=== PATIENT | male | born 1945 | race Caucasian/White ===

== ENCOUNTER 2018-12-19 21:07 | Inpatient (IN) | payer MEDICARE, MEDICAID ==
[2018-12-20] MEDS ORDERED: HYDROcodone/Acetaminophen 5/325 mg Tablet PO PRN ×2 (00:56)
[2018-12-20] MEDS ORDERED: Ondansetron PF 4 MG/2 ML Vial IVP PRN ×2 (00:56→03:26)
[2018-12-20] MEDS ORDERED: Acetaminophen 325 MG TAB PO PRN (00:56)
[2018-12-20] MEDS ORDERED: Sodium Chloride 0.9% 1,000 ML IV SCH (00:56)
[2018-12-20 02:05] VITALS: BMI 22.2
[2018-12-20] MEDS ORDERED: Senokot S 8.6-50 MG TAB PO PRN (03:26)
[2018-12-20] MEDS ORDERED: Acetaminophen 500 MG TAB PO PRN (03:26)
[2018-12-20] MEDS ORDERED: Ondansetron ODT 4 MG TAB PO PRN (03:26)
[2018-12-20] MEDS ORDERED: hydrALAZINE 20 MG/ML VIAL SLOW IVP PRN (03:26)
[2018-12-20] MEDS ORDERED: Bisacodyl 5 MG TAB PO PRN (03:26)
[2018-12-20] MEDS: cefTRIAXone\\ROCEPHIN 2 GM in Sodium Chloride 0.9% 100 ML IVPB SCH (04:25)
[2018-12-20 04:31] LABS: Band 6 % (5-11); Eosinophils 2 % (0-10); Hemoglobin 12.8 g/dL (14.0-18.0); Lymphocytes 8 % (21-51); MDiff Complete? YES; Mean Corpuscular HGB CONC 33.7 g/dL (32.0-36.0); Mean Corpuscular Hemoglobin 30.4 pg (27.0-31.0); Mean Corpuscular Volume 90.2 fL (78.0-98.0); Monocytes 6 % (0-10); Neutrophil 78 % (42-75); Platelet Count 211 thou/uL (130-400); Platelet Morphology Comment Appears Adequate; RBC Distribution Width 12.2 % (11.5-14.5); RBC Morphology Normal; White Blood Cell (WBC) Count 8.1 thou/uL (4.8-10.8)
[2018-12-20 04:36] LABS: ALT (SGPT) 11 U/L (8-55); AST (SGOT) 39 U/L (5-34); Albumin 3.6 g/dL (3.4-4.8); Alkaline Phosphatase 85 U/L (40-150); Anion Gap 11 mmol/L (10-20); BUN (Urea Nitrogen) 16 mg/dL (8.4-25.7); Bilirubin, Total 0.5 mg/dL (0.2-1.2); Calc. Creatinine Clearance 61 mL/min (70-130); Calcium 9.2 mg/dL (7.8-10.44); Carbon Dioxide 27 mmol/L (23-31); Chloride 105 mmol/L (98-107); Estimated GFR-MDRD 59; Globulin 2.5 g/dL (2.4-3.5); Glucose 102 mg/dL (83-110); Potassium 4.2 mmol/L (3.5-5.1); Protein, Total 6.1 g/dL (5.8-8.1); Sodium 139 mmol/L (136-145)
[2018-12-20] MEDS: Sodium Chloride 0.9% 1,000 ML IV SCH ×3 (04:37→23:04)
--- NOTE | 2018-12-20 05:20 | HP ---
PRIMARY CARE PROVIDER: Dr. Lisa Casper. CHIEF COMPLAINT: Question of abdominal pain. HISTORY OF PRESENT ILLNESS: This is a 73-year-old male, who is a current resident of [facility] due to advanced Parkinson disease, deconditioning, dementia with a known history of benign prostatic hyperplasia with overactive bladder. The patient apparently was noted by intermediate staff with some abdominal pain and referred to the [facility]. The patient underwent CT imaging of the abdomen and pelvis in [place] showing a left renal mass with evidence of metastatic process including a pathological L4 compression fracture. The patient without a known prior history of renal mass upon review of the electronic medical record. The patient was also diagnosed with potential urinary tract infection, receiving Levaquin and Rocephin intravenously. The patient also received morphine sulfate 2 mg IV push x1 dose. The patient was transferred to [facility] in [place], [place] for further evaluation of left renal mass and potential metastatic process. The patient is unable to provide any coherent history due to advanced dementia, and history is obtained after review of the electronic medical record from [facility] and [facility]. No family members are currently present or available. PAST MEDICAL HISTORY: 1. Hypertension. 2. Parkinson disease. 3. Benign prostatic hyperplasia with overactive bladder. 4. History of intermittent gross hematuria. 5. Chronic anemia. 6. Dementia, likely Alzheimer's type. 7. Deconditioning. 8. Recurrent urinary tract infections. 9. Chronic constipation. PAST SURGICAL HISTORY: Status post cataract removal. CURRENT MEDICATIONS: 1. Ferrous sulfate 325 mg p.o. daily. 2. Finasteride 5 mg p.o. daily. 3. Lasix 10 mg p.o. daily. 4. Mirtazapine 7.5 mg p.o. at bedtime. 5. Myrbetriq 50 mg p.o. daily. 6. Prolensa 0.07% ophthalmic drops. 7. Sinemet 25/100 mg one tablet p.o. t.i.d. 8. Ofloxacin ophthalmic drops 0.3%. 9. Prednisolone acetate 1% ophthalmic drops. ALLERGIES: TO SULFA. FAMILY HISTORY: No inheritable diseases per patient report. SOCIAL HISTORY: The patient resides in [facility]. No current alcohol, tobacco, or illicit drug use. CODE STATUS: Do not attempt resuscitation. Surrogate medical decision maker is Christiana Quiñones. REVIEW OF SYSTEMS: Unobtainable due to patient's advanced dementia. PHYSICAL EXAMINATION: VITAL SIGNS: On admission; blood pressure 126/70, pulse 85, respiratory rate 16, temperature 97.7 degrees Fahrenheit, and O2 saturation 97% on room air. GENERAL APPEARANCE: This is a 73-year-old male, alert and responds to his name with 1 to 2-word phrases. No acute distress. HEENT: Pupils are equal, round, and reactive to light and accommodation. Extraocular muscles are intact. No scleral icterus. No conjunctival injection. Nares patent. OP is clear. Oral mucosa, dry appearing. NECK: Supple. No cervical adenopathy. No thyromegaly. No carotid bruits. No JVD appreciated. Cervical spine with full active and passive range of motion. No meningeal signs noted. CHEST: Lungs are clear to auscultation bilaterally. CARDIOVASCULAR: S1 and S2 without noted murmur, rub, or gallop. ABDOMEN: Rounded, soft, nontender, and nondistended. Bowel sounds are positive in all 4 quadrants. There is no hepatosplenomegaly. No abdominal bruits. No rebound or guarding appreciated. EXTREMITIES: Warm and dry with fair turgor. Mild venous stasis changes to bilateral lower extremities noted. Pulses palpable distally at the dorsalis pedis, posterior tibial, and popliteal arteries bilaterally. Capillary refill less than 2 seconds. NEUROLOGIC: Cranial nerves 2 through 12 are grossly intact. The patient not observed ambulatory during the exam. Alert and oriented x1 to person. PERTINENT LABORATORY AND X-RAY FINDINGS: Sodium 141, potassium 4.0, chloride 105, CO2 of 28, BUN 19, creatinine 1.23, estimated GFR 57, and glucose 98. Lactic acid level 0.9 and calcium 9.4. LFTs within normal limits. CBC showed a white blood cell count of 7.4, hemoglobin 12.4, hematocrit 38, and platelet count 200 with 81% neutrophilia. Urinalysis dated 12/19/2018 showed positive ketones, large blood with greater than 50 to [id number]-count rbc's per high-powered field and 11 to 20 wbc's per high-powered field. 2+ bacteria noted. CT of the abdomen and pelvis dated 12/19/2018 showed large left mixed density renal mass with likely metastatic process with associated pathologic fracture at L4. Marked prostate enlargement with mass effect upon the bladder base. CT of the brain without contrast by my interpretation dated 12/19/2018 showed advanced atrophy with sulcal and ventricular prominence. No acute process identified. EKG dated 12/19/2018 by my interpretation shows a sinus mechanism with heart rates in the 80s. Normal R-wave progression noted in the precordial leads. Normal axis. No acute ST-T wave changes noted. ASSESSMENT AND PLAN: 1. Urinary tract infection. Suspected given initial urinalysis. Await final urine culture results. Continue Rocephin 2 g IV q.24 hours. Continue IV fluids with normal saline at 75 mL/hour. 2. Acute metabolic encephalopathy. Suspect secondary to #1. We will continue treatment as outlined in #1. Suspect also component of underlying dementia. 3. Left renal mass with apparent metastatic process. We will consult Urology Service in the a.m. for further recommendations. 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 4. L4 compression fracture. Suspected pathological fracture. We will continue supportive management and pain control as clinically indicated. Consult Neurosurgical Service for any further recommendations and consideration for LSO bracing. 5. Parkinson disease. Continue Sinemet CR t.i.d. PT evaluation for functional assessment. General fall risk precautions. 6. Dementia, likely Alzheimer's type. Continue supportive management. 7. Prophylaxis. SCDs while in bed. Pepcid 20 mg p.o. b.i.d. PT evaluation for functional assessment. 8. Code status is do not attempt resuscitation, confirmed with out of hospital directive and DNR status. Surrogate medical decision maker is Christiana Quiñones. Job ID: [id number]
--- NOTE | 2018-12-20 07:27 | CT ---
HEAD CT NONCONTRAST: INDICATION: Altered mental status. FINDINGS: There is mild parenchymal volume. Ventricular system is age appropriate in size. There is no acute intracranial hemorrhage, mass effect, or midline shift. No acute fluid level of the paranasal sinuse s. IMPRESSION: No acute intracranial abnormality. POS: C
[2018-12-20] MEDS ORDERED: VIT E PO SCH (09:00)
[2018-12-20] MEDS ORDERED: [UNRECOGNIZED DRUG - OTHER] PO SCH (09:00)
[2018-12-20] MEDS ORDERED: VIT A PO SCH (09:00)
[2018-12-20] MEDS ORDERED: ZINC PO SCH (09:00)
[2018-12-20] MEDS ORDERED: VIT C PO SCH (09:00)
[2018-12-20] MEDS ORDERED: HumaLOG 300 UNITS/3 ML VIAL SC PRN ×2 (09:26)
[2018-12-20] MEDS: Multivitamin W/ Minerals 1 TAB PO SCH (09:34)
[2018-12-20] MEDS: Ferrous Sulfate 325 MG TAB PO SCH (09:34)
[2018-12-20] MEDS: Famotidine 20 MG TAB PO SCH ×2 (09:34→20:18)
[2018-12-20] MEDS: Polyethylene Glycol 3350 17 GM Packet PO SCH ×2 (09:34→20:19)
[2018-12-20] MEDS: Finasteride 5 MG TAB PO SCH (09:34)
[2018-12-20] MEDS: Carbidopa/Levodopa 25-100 mg Tablet PO SCH ×3 (09:45→20:18)
--- NOTE | 2018-12-20 13:21 | PDOC.EVN ---
Event Note - Event Note Event Note: Chart reviewed. Pt seen. Says he feels about the same. VSS, S1, S2, RRR. Lungs CTA. Continue IV ceftriaxone for UTI. Pt awaiting consultes from urology, neurosurgery and oncology. Once prognosis is clearer, decision to be made re: treatment options including palliative/ hospice care.
--- NOTE | 2018-12-20 15:57 | PRG ---
DATE OF SERVICE: 12/20/2018 This is a 30-minute initial hospital visit note, in which 30 minutes were spent reviewing the imaging, record evaluation, examination of the patient, and formulation of plan. Greater than 50% time was spent in counseling on Elvin Nicole. SUBJECTIVE: Mr. Nicole is a very pleasant 73-year-old gentleman, who presented with low back pain. He was found to have an L4 anterior middle column fracture. There is no worrisome retropulsion. On abdominal pelvic CT he was found to have a renal mass concerning for renal cell carcinoma. He is on the Oncology floor. OBJECTIVE: On exam, he is alert and appropriate. He is neurologically intact. I have updated him in regard to the findings of the CT, specifically related to his spine, and also that he has a kidney mass that will need further evaluation. From a neurosurgical standpoint, treatment of his fracture will include arrangement for a lumbosacral orthosis to be worn when out of bed for duration of approximately 6 to 12 weeks. I have updated the patient in this regard, and we will order the brace. I will also arrange follow up in my clinic in approximately 6 weeks with upright AP and lateral lumbar spine x-rays. The patient is appreciative of the evaluation, consultation, and demonstrates understanding of the plan. DIAGNOSIS: L4 fracture possibly pathologic with renal mass. Job ID: [id number]
[2018-12-20] MEDS: Mirtazapine 15 MG TAB PO SCH (20:19)
--- NOTE | 2018-12-20 20:42 | CON ---
DATE OF CONSULTATION: 12/20/2018 REASON FOR CONSULTATION: Possible metastatic kidney malignancy. HISTORY OF PRESENT ILLNESS: The patient is a 73-year-old man who is currently resident of the [facility] due to advanced Parkinson disease and dementia. He has a poor functional status and is essentially confined to bed, and possibly wheelchair. He complained of abdominal discomfort and was further evaluated in the [facility] with imaging including a CT scan of the abdomen and pelvis which showed a large left kidney mass with a hemorrhagic component, associated with a possible pathologic fracture of L4. There is worrisome questionable small lytic lesion in the visualizable skeleton. There was also history of urinary tract infection and the patient was placed on antibiotics. He was transferred to [facility] for further evaluation and I am asked to see the patient to provide further management and recommendation. ALLERGIES: THERE IS A HISTORY OF SULFA ALLERGY, DETAILS UNAVAILABLE. MEDICATIONS: 1. Ferrous sulfate. 2. Finasteride. 3. Lasix. 4. Mirtazapine. 5. Myrbetriq. 6. Prolensa eye drops. 7. Sinemet. 8. Ofloxacin eye drops. 9. Prednisolone eye drops. PAST MEDICAL HISTORY: Hypertension, Parkinson disease, BPH, dementia, deconditioning, recurrent urinary tract infection, chronic constipation. FAMILY HISTORY: No relevant history according to review of past records. SOCIAL HISTORY: He resides in [facility]. He does not use alcohol or tobacco. He has been a do not resuscitate patient in [place]. His medical power of trust and estates attorney is his sister, Perez Morelos. REVIEW OF SYSTEMS: Unobtainable as the patient cannot participate in a meaningful conversation secondary to his underlying dementia. PHYSICAL EXAMINATION: VITAL SIGNS: Temperature 98.3, pulse 69 and regular, respirations 16, blood pressure 139/67. O2 saturation 98% on room air. GENERAL: The patient is a well-developed and well-nourished man who appears in no acute distress, lying flat. He is disoriented to time and place. He cannot participate meaningfully in a conversation and cannot answer simple questions. HEENT: Extraocular movements are intact. Pupils are equal, round, and reactive to light. NECK: Supple. LUNGS: Clear. CARDIOVASCULAR: Regular rate and rhythm without murmur, rub, gallop, or click. ABDOMEN: No tenderness, organomegaly, masses, bruits, or ascites. EXTREMITIES: No clubbing, cyanosis, or edema. SKIN: Normal. LYMPHATICS: No adenopathy. MUSCULOSKELETAL: No active arthritis. NEUROLOGIC: No focal findings and the cranial nerves 2 through 12 are grossly intact. LABORATORY DATA: White blood cell count 8.1, hemoglobin 12.8, MCV 90.2, and platelet count 211,000. White blood cell differential is normal. Chemistry showed normal electrolytes and a creatinine of 1.2. A point of care blood sugar is 91. LFTs are normal except for a borderline AST of 39. PSA 3.79. Calcium is 9.2. IMAGING DATA: See history of present illness. IMPRESSION: 1. Left kidney mass with hemorrhagic component, associated with possible malignant L4 compression fracture. 2. Advance dementia and poor functional status. RECOMMENDATIONS: Given the presence of advanced dementia and poor performance status, I would recommend an extremely conservative approach in this setting. At this point, I would concentrate on comfort measures and not pursue a definitive diagnosis. His prognosis secondary to his multiple comorbidities is poor. Of course, we have not discussed his case with his medical power trust and estates attorney and attempts to contact Perez Morelos continue. Thanks very much for allowing me to provide more recommendations. Job ID: [id number]
--- NOTE | 2018-12-20 21:18 | CON ---
DATE OF CONSULTATION: 12/20/2018 HISTORY OF PRESENT ILLNESS: The patient has actually been followed by Dr. Caicedo previously, and I am seeing him over the weekend as coverage for him, although the patient could not relay this information to me. He was able to answer questions , but the accuracy of his answers is in question as he is not oriented to time or place. He has pain and I am not sure if this pain is causing him to wince, grimace, and cry out with very hesitance during our conversation. He cannot tell me what was hurting him or really whether anything was hurting him as this same reaction was elicited when I asked him either difficult question or asked him to try to move position (and occurred even without him actually moving). Then I could ask another question and get him to stop simply with distraction. He denies seeing blood in the urine recently, but he does admit to having a push to get the urine out. Dr. Caicedo saw him last in September and followed him last year for gross hematuria. At that time, he did cystoscopy in the office that was difficult given persistent hematuria, but did not show any obvious masses and did confirm that the prostate was bleeding. He started finasteride at that time. PAST MEDICAL HISTORY: Significant for Parkinson's. He lives in a jail in [place]. Constipation, dementia, anemia, and urinary tract infection. PAST SURGICAL HISTORY: Includes cataracts, left arm surgery, and some abdominal procedure that I could not understand, but there is clearly an incision in this area. MEDICATIONS: Include: 1. Iron. 2. Finasteride. 3. Lasix. 4. Mirtazapine. 5. Myrbetriq 50 mg. 6. Prolensa. 7. Sinemet. 8. Antibiotic and steroid eyedrops. SOCIAL HISTORY: I do not think he has smoked for 20 or 30 years, but I could not ascertain how much he was smoking at that time. He does not drink alcohol. No drugs. He used to drink alcohol when he was not in the facility, but did not abuse it. FAMILY HISTORY: His mother and father were passed, but I could not understand how older and from what. REVIEW OF SYSTEMS: Reveals he has had nausea, but no vomiting. His bowels have been okay. He denies any chest pain or shortness of breath or cough. I do not think he has had a history of stones. He has been screened for prostate cancer previously with a PSA of 9.16 in September 2017; however, the PSA upon admission now 3.79, which should be doubled fairly at 7.58. PHYSICAL EXAMINATION: GENERAL: He is lying in the bed comfortably; however, when I interacted him as previously mentioned, he was periodically grimaces, opens his mouth wide and begins to cry. He never actually would open his eyes fully for me to assess them He kept them closed even when he was not grimacing. NECK: He had no JVD. HEART: His heart was difficult to listen to as he was both talking and murmuring during listening. LUNGS: His lungs had an intermittent increased coarse breath sounds, but otherwise nothing of concern. ABDOMEN: Soft, nondistended, and nontender with the incision in the left mid abdomen horizontally lateral to the umbilicus. He also had an incision in his left arm near the wrist. HEENT: He was missing his lower teeth. GENITOURINARY: His testes were descended bilaterally. His phallus was circumcised without lesions. RECTAL: I attempted digital rectal exam, but I was only able to feel the apex and that was soft and non-concerning. EXTREMITIES: He had bilateral lower extremity edema that was slightly pitting. LABORATORY DATA: CBC was unremarkable. BUN and creatinine are 16 and 1.20. This does appear to be his baseline. Urinalysis upon admission showed 11 to 20 wbc's , too numerous to count rbc's, 2+ bacteria, and no squamous cells. CT scan on 12/19/2018 with contrast reviewed personally. It revealed a right simple cyst as well as a left 5.8 x 4.5 x 4 cm renal mass that is mid to upper and all endophytic. There was no noncontrast imaging to measure. HFUs were in the 40s. He had an enlarged prostate with an intravesical component (which has been confirmed by cysto by Dr. Caicedo) and normal small bladder. ASSESSMENT: We have a 73-year-old male admitted with abdominal pain, likely related to urinary tract infection from benign prostatic hyperplasia, bladder outlet obstruction, who also happens to have a large concerning left renal mass and a concern for metastatic spinal lesion. Clearly, the renal mass is most concerning issue at this time, and having a discussion of whether to biopsy and/or treat this would be appropriate with both him and his surrogate decision makers. If a biopsy is considered, I did go ahead and order a PT and PTT and I would hold any aspirin or blood thinners at this time. Given the UTI that he is admitted with, it is a definitive indication for surgical procedure for his bladder outlet obstruction based on the fact he has already been on finasteride. But at this point, I would just go ahead and add tamsulosin which should aid in improving his emptying and efficiency of such at this time. Job ID: [id number] [facility]
[2018-12-21] MEDS: cefTRIAXone\\ROCEPHIN 2 GM in Sodium Chloride 0.9% 100 ML IVPB SCH (04:49)
[2018-12-21 05:04] LABS: INR-International Normal Ratio 1.2; PTT 38.8 SEC (22.9-36.1); Prothrombin Time 14.9 SEC (12.0-14.7)
[2018-12-21] MEDS: Finasteride 5 MG TAB PO SCH (08:43)
[2018-12-21] MEDS: Famotidine 20 MG TAB PO SCH ×2 (08:43→20:30)
[2018-12-21] MEDS: Multivitamin W/ Minerals 1 TAB PO SCH (08:44)
[2018-12-21] MEDS: Carbidopa/Levodopa 25-100 mg Tablet PO SCH ×3 (08:44→20:30)
[2018-12-21] MEDS: Polyethylene Glycol 3350 17 GM Packet PO SCH ×2 (08:44→20:30)
[2018-12-21] MEDS: Ferrous Sulfate 325 MG TAB PO SCH (08:44)
[2018-12-21] MEDS: Sodium Chloride 0.9% 1,000 ML IV SCH (12:35)
--- NOTE | 2018-12-21 19:18 | PDOC.PN ---
- Subjective Encounter Start Date: 12/21/18 Encounter Start Time: 08:30 Patient seen and examined for Encephalopathy/UTI. No new complaints. No overnight events - Objective Resuscitation Status - Order Detail: 12/20/18 03:18 Resuscitation Status Routine Resuscitation Status: DNAR: NO Resuscitation Discussed with: Confirmed with OOH directive MAR Reviewed: Yes Vital Signs & Weight: Vital Signs (12 hours) Temp Pulse Resp BP Pulse Ox 12/21/18 08:00 97.9 F 66 16 133/77 99 Weight Weight 178 lb I&O: 12/20/18 12/21/18 12/22/18 06:59 06:59 06:59 Intake Total 0 1600 1200 Output Total 1975 975 Balance 0 -375 225 Result Diagrams: 12/20/18 04:08 12/20/18 04:08 Additional Labs: Accuchecks 12/21/18 12/21/18 12/21/18 15:24 11:15 05:19 POC Glucose 106 135 H 88 12/20/18 20:02 POC Glucose 120 H Phys Exam - Physical Examination Constitutional: NAD Respiratory: no wheezing, no rhonchi Cardiovascular: RRR, no rub Gastrointestinal: soft, non-tender, positive bowel sounds Musculoskeletal: no edema Dx/Plan - Plan DVT proph w/SCDs 1. Toxic Metabolic Encephalopathy due to UTI 2. New Renal mass with L4 fracture ?mets 3. Parkinson disease 4. CKD 2 5. Dementia/ Chronic Anemia PLAN: Cont IV Ceftriaxone Check Postvoid residuals Cont Flomax Cont other meds as below Review of Systems - Review of Systems Respiratory: negative: Cough, Dry, Shortness of Breath, Hemoptysis, SOB with Excertion, Pleuritic Pain, Sputum, Wheezing Cardiovascular: negative: chest pain, palpitations, orthopnea, paroxysmal nocturnal dyspnea, edema, light headedness, other - Medications/Allergies Allergies/Adverse Reactions: Allergies Allergy/AdvReac Type Severity Reaction Status Date / Time Sulfa (Sulfonamide Allergy Verified 12/20/18 01:48 Antibiotics) Medications: Current Medications Acetaminophen (Tylenol) 1,000 mg PO Q6H PRN PRN Reason: Mild Pain (1-3) Bisacodyl (Dulcolax) 10 mg PO DAILYPRN PRN PRN Reason: Constipation Carbidopa/Levodopa (Sinemet 25-100) 1 tab PO TID MARQUES Last Admin: 12/21/18 15:25 Dose: 1 tab Famotidine (Pepcid) 20 mg PO BID [facility] Last Admin: 12/21/18 08:43 Dose: 20 mg Ferrous Sulfate (Feosol) 325 mg PO DAILY [facility] Last Admin: 12/21/18 08:44 Dose: 325 mg Finasteride (Proscar) 5 mg PO DAILY [facility] Last Admin: 12/21/18 08:43 Dose: 5 mg Hydralazine HCl (Apresoline) 10 mg SLOW IVP Q4H PRN PRN Reason: SBP > 180 and HR < 70 Ceftriaxone Sodium 2 gm/ (Sodium Chloride) 100 mls @ 200 mls/hr IVPB Q24HR [facility] Last Admin: 12/21/18 04:49 Dose: 100 mls Sodium Chloride (Normal Saline 0.9%) 1,000 mls @ 75 mls/hr IV .[id number] [facility] Last Admin: 12/21/18 12:35 Dose: 1,000 mls Insulin Human Lispro (Humalog) 0 units SC .MILD SLIDING SCALE PRN; Protocol PRN Reason: MILD SLIDING SCALE Insulin Human Lispro (Humalog) 0 units SC .BEDTIME SLIDING SC PRN; Protocol PRN Reason: BEDTIME SLIDING SCALE Iron/Minerals/Multivitamins (Theragran M) 1 tab PO DAILY [facility] Last Admin: 12/21/18 08:44 Dose: 1 tab Mirabegron (Myrbetriq Er) 50 mg PO DAILY [facility] Last Admin: 12/21/18 08:43 Dose: 50 mg Mirtazapine (Remeron) 7.5 mg PO HS [facility] Last Admin: 12/20/18 20:19 Dose: 7.5 mg Ondansetron HCl (Zofran Odt) 4 mg PO Q6H PRN PRN Reason: Nausea/Vomiting Ondansetron HCl (Zofran) 4 mg IVP Q6H PRN PRN Reason: Nausea/Vomiting Polyethylene Glycol (Miralax) 17 gm PO BID [facility] Last Admin: 12/21/18 08:44 Dose: 17 gm Senna/Docusate Sodium (Senokot S) 2 tab PO BIDPRN PRN PRN Reason: Constipation Sodium Chloride (Flush - Normal Saline) 10 ml IVF Q12HR [facility] Last Admin: 12/21/18 09:01 Dose: 10 ml Sodium Chloride (Flush - Normal Saline) 10 ml IVF PRN PRN PRN Reason: Saline Flush Tamsulosin HCl (Flomax) 0.4 mg PO BID [facility]QUES
[2018-12-21] MEDS: Mirtazapine 15 MG TAB PO SCH (20:30)
[2018-12-21] MEDS: Tamsulosin HCl 0.4 MG CAP PO SCH (20:31)
--- NOTE | 2018-12-21 23:51 | PRG ---
DATE OF SERVICE: 12/21/2018 SUBJECTIVE: The patient states he is having some back pain, but otherwise is not complaining of any more lower abdominal pain. States he is urinating fine. Denies any hematuria. OBJECTIVE: VITAL SIGNS: Temperature 98.2, pulse 69, respirations 18, blood pressure 126/59, saturation 95% on room air. GENERAL: No apparent distress, communicative but confused. Poor memory. Appears stated age. ABDOMEN: Soft, nontender, and nondistended. Positive bowel sounds. No further suprapubic tenderness. : Nonfocal. No catheter. EXTREMITIES: 1+ edema bilaterally. No cyanosis. LABORATORY EVALUATION: The full set of labs in the [facility] system which I have reviewed. Of note, there are no new labs from today except coags which show an INR of 1.2 and extreme mild elevation of PT and PTT. ASSESSMENT AND PLAN: A 73-year-old white male with a large renal mass with osseous metastatic disease with an L4 compression fracture. Neurosurgery and medical Oncology have already been consulted. There is no bone scan for complete staging. I would recommend a renal biopsy to confirm whether this is renal cell carcinoma versus urothelial carcinoma and obtaining a tissue diagnosis. Given the patient 's significant dementia, advanced age, and comorbidities, he may be best suited for hospice care, although treatment with immunotherapy followed by cytoreductive nephrectomy is still possible depending on the power consumer attorney's wishes and discussion with the patient. I have told them that I will discuss with them after the biopsy in conjunction with Medical Oncology. I will continue to follow and make recommendations. I would agree with continuing antibiotics at the current time. All of the patient's culture was negative. His UA previously did look suspicious for urinary tract infection and I am not sure whether the patient was started on antibiotics prior to the culture being obtained. Job ID: [id number] MTDD
[2018-12-22] MEDS: Sodium Chloride 0.9% 1,000 ML IV SCH ×2 (01:12→16:00)
[2018-12-22] MEDS: cefTRIAXone\\ROCEPHIN 2 GM in Sodium Chloride 0.9% 100 ML IVPB SCH (03:09)
[2018-12-22 04:33] LABS: #Eosinphils 0.4 thou/uL (0.0-0.7); #Lymphocytes 0.8 thou/uL (1.20-3.40); #Monocytes 0.5 thou/uL (0.11-0.59); #Neutrophils 3.8 thou/uL (1.40-6.50); %Basophils 0.9 % (0.0-1.0); %Eosinophils 6.5 % (0.0-10.0); %Lymphocytes 14.3 % (21.0-51.0); %Monocytes 8.8 % (0.0-10.0); %Neutrophils 69.5 % (42.0-75.0); Mean Corpuscular HGB CONC 33.9 g/dL (32.0-36.0); Mean Corpuscular Hemoglobin 30.7 pg (27.0-31.0); Mean Corpuscular Volume 90.5 fL (78.0-98.0); Mean Platelet Volume 7.2 fL (7.4-10.4); Platelet Count 188 thou/uL (130-400); RBC Distribution Width 12.4 % (11.5-14.5); White Blood Cell (WBC) Count 5.5 thou/uL (4.8-10.8)
[2018-12-22 04:50] LABS: Anion Gap 11 mmol/L (10-20); BUN (Urea Nitrogen) 13 mg/dL (8.4-25.7); Calc. Creatinine Clearance 67 mL/min (70-130); Calcium 8.6 mg/dL (7.8-10.44); Carbon Dioxide 25 mmol/L (23-31); Chloride 109 mmol/L (98-107); Estimated GFR-MDRD 67; Glucose 98 mg/dL (83-110); Magnesium 1.8 mg/dL (1.6-2.6); Potassium 3.8 mmol/L (3.5-5.1); Sodium 141 mmol/L (136-145)
[2018-12-22] MEDS: Famotidine 20 MG TAB PO SCH ×2 (09:46→21:52)
[2018-12-22] MEDS: Carbidopa/Levodopa 25-100 mg Tablet PO SCH ×3 (09:46→21:50)
[2018-12-22] MEDS: Finasteride 5 MG TAB PO SCH (09:47)
[2018-12-22] MEDS: Tamsulosin HCl 0.4 MG CAP PO SCH ×2 (09:47→21:52)
[2018-12-22] MEDS ORDERED: Midazolam HCl 2 mg/2 ml Vial ONE (10:16)
[2018-12-22] MEDS ORDERED: Fentanyl 100 MCG/2 ML VIAL ONE (10:17)
[2018-12-22] MEDS ORDERED: Sodium Bicarbonate 2.5 MEQ/5 ML VIAL ONE (10:20)
--- NOTE | 2018-12-22 12:02 | CT ---
CT Renal Perc Biopsy History: [Left renal mass] Comparison: CT abdomen and pelvis December 19, 2018 Findings: Patient was brought to the CT suite. Questions were answered. Informed consent was obtained. Timeout performed. The patient's left flank was prepped and draped in normal sterile fashion. 5 mL of lidocaine was inst illed into the superficial and deep soft tissues. Small to moderate was made. Using an 18-gauge guidance needle (3) 11 mm cores were obtained. Patholog y confirmed adequacy. No subcapsular or perinephric hematoma. Gelfoam was used to plug the tract site . Impression: Technically successful CT-guided left renal mass biopsy
[2018-12-22] MEDS: Ferrous Sulfate 325 MG TAB PO SCH (15:25)
[2018-12-22] MEDS: Polyethylene Glycol 3350 17 GM Packet PO SCH ×2 (15:28→21:52)
[2018-12-22] MEDS: Multivitamin W/ Minerals 1 TAB PO SCH (15:28)
[2018-12-22] MEDS: Mirtazapine 15 MG TAB PO SCH (21:51)
--- NOTE | 2018-12-22 22:08 | PDOC.PN ---
- Subjective Encounter Start Date: 12/22/18 Encounter Start Time: 11:15 Patient seen and examined for AMS/UTI. No fever/dysuria. No new complaints. No overnight events - Objective Resuscitation Status - Order Detail: 12/20/18 03:18 Resuscitation Status Routine Resuscitation Status: DNAR: NO Resuscitation Discussed with: Confirmed with OOH directive MAR Reviewed: Yes Vital Signs & Weight: Vital Signs (12 hours) Temp Pulse Resp BP Pulse Ox 12/22/18 19:44 98.1 F 76 18 140/68 98 12/22/18 13:25 97.4 F L 69 16 129/61 97 12/22/18 12:55 97.8 F 69 16 130/66 97 12/22/18 12:40 97.6 F 68 16 125/65 96 12/22/18 12:25 97.5 F L 71 16 127/63 98 12/22/18 12:10 98.0 F 69 16 124/65 97 12/22/18 11:55 98.0 F 69 16 122/62 98 Weight Weight 178 lb I&O: 12/21/18 12/22/18 12/23/18 06:59 06:59 06:59 Intake Total 1600 2440 Output Total 1975 1300 Balance -375 1140 Result Diagrams: 12/22/18 04:27 12/22/18 04:27 Additional Labs: Accuchecks 12/22/18 05:34 POC Glucose 114 H Microbiology 12/19/18 17:10 Urine voided Urine Culture - Final NO GROWTH AT 36 HOURS Phys Exam - Physical Examination Constitutional: NAD Respiratory: no wheezing, no rhonchi Cardiovascular: RRR, no rub Gastrointestinal: soft, non-tender, positive bowel sounds Musculoskeletal: no edema Neurological: moves all 4 limbs Dx/Plan - Plan DVT proph w/SCDs 1. Toxic Metabolic Encephalopathy due to UTI - improving 2. New Renal mass with L4 fracture ?mets s/p CT guided biopsy 12/22 3. Parkinson disease 4. CKD 2 5. Dementia/ Chronic Anemia PLAN: Cont IV Ceftriaxone Postvoid residuals - normal Cont Flomax and other meds as below AM labs Review of Systems - Review of Systems Respiratory: negative: Cough, Dry, Shortness of Breath, Hemoptysis, SOB with Excertion, Pleuritic Pain, Sputum, Wheezing Cardiovascular: negative: chest pain, palpitations, orthopnea, paroxysmal nocturnal dyspnea, edema, light headedness, other Gastrointestinal: negative: Nausea, Vomiting, Abdominal Pain, Diarrhea, Constipation, Melena, Hematochezia, Other - Medications/Allergies Allergies/Adverse Reactions: Allergies Allergy/AdvReac Type Severity Reaction Status Date / Time Sulfa (Sulfonamide Allergy Verified 12/20/18 01:48 Antibiotics) Medications: Current Medications Acetaminophen (Tylenol) 1,000 mg PO Q6H PRN PRN Reason: Mild Pain (1-3) Bisacodyl (Dulcolax) 10 mg PO DAILYPRN PRN PRN Reason: Constipation Carbidopa/Levodopa (Sinemet 25-100) 1 tab PO TID [facility] Last Admin: 12/22/18 21:50 Dose: 1 tab Famotidine (Pepcid) 20 mg PO BID [facility] Last Admin: 12/22/18 21:52 Dose: 20 mg Ferrous Sulfate (Feosol) 325 mg PO DAILY [facility] Last Admin: 12/22/18 15:25 Dose: 325 mg Finasteride (Proscar) 5 mg PO DAILY [facility] Last Admin: 12/22/18 09:47 Dose: 5 mg Hydralazine HCl (Apresoline) 10 mg SLOW IVP Q4H PRN PRN Reason: SBP > 180 and HR < 70 Ceftriaxone Sodium 2 gm/ (Sodium Chloride) 100 mls @ 200 mls/hr IVPB Q24HR [facility] Last Admin: 12/22/18 03:09 Dose: 100 mls Sodium Chloride (Normal Saline 0.9%) 1,000 mls @ 30 mls/hr IV .Q24H [facility] Last Admin: 12/22/18 16:00 Dose: 1,000 mls Insulin Human Lispro (Humalog) 0 units SC .MILD SLIDING SCALE PRN; Protocol PRN Reason: MILD SLIDING SCALE Insulin Human Lispro (Humalog) 0 units SC .BEDTIME SLIDING SC PRN; Protocol PRN Reason: BEDTIME SLIDING SCALE Iron/Minerals/Multivitamins (Theragran M) 1 tab PO DAILY [facility] Last Admin: 12/22/18 15:28 Dose: Not Given Mirabegron (Myrbetriq Er) 50 mg PO DAILY [facility] Last Admin: 12/22/18 09:47 Dose: 50 mg Mirtazapine (Remeron) 7.5 mg PO HS [facility] Last Admin: 12/22/18 21:51 Dose: 7.5 mg Ondansetron HCl (Zofran Odt) 4 mg PO Q6H PRN PRN Reason: Nausea/Vomiting Ondansetron HCl (Zofran) 4 mg IVP Q6H PRN PRN Reason: Nausea/Vomiting Polyethylene Glycol (Miralax) 17 gm PO BID [facility] Last Admin: 12/22/18 21:52 Dose: 17 gm Senna/Docusate Sodium (Senokot S) 2 tab PO BIDPRN PRN PRN Reason: Constipation Sodium Chloride (Flush - Normal Saline) 10 ml IVF Q12HR [facility] Last Admin: 12/22/18 21:52 Dose: 10 ml Sodium Chloride (Flush - Normal Saline) 10 ml IVF PRN PRN PRN Reason: Saline Flush Tamsulosin HCl (Flomax) 0.4 mg PO BID [facility] Last Admin: 12/22/18 21:52 Dose: 0.4 mg
[2018-12-23] MEDS: cefTRIAXone\\ROCEPHIN 2 GM in Sodium Chloride 0.9% 100 ML IVPB SCH (04:00)
[2018-12-23 04:28] LABS: Hemoglobin 12.6 g/dL (14.0-18.0); Platelet Count 196 thou/uL (130-400)
[2018-12-23 04:33] LABS: Anion Gap 10 mmol/L (10-20); BUN (Urea Nitrogen) 12 mg/dL (8.4-25.7); Calc. Creatinine Clearance 58 mL/min (70-130); Calcium 8.8 mg/dL (7.8-10.44); Carbon Dioxide 28 mmol/L (23-31); Chloride 106 mmol/L (98-107); Estimated GFR-MDRD 56; Glucose 92 mg/dL (83-110); Potassium 3.7 mmol/L (3.5-5.1); Sodium 140 mmol/L (136-145)
[2018-12-23] MEDS: Tamsulosin HCl 0.4 MG CAP PO SCH ×2 (09:50→21:59)
[2018-12-23] MEDS: Famotidine 20 MG TAB PO SCH ×2 (09:50→21:59)
[2018-12-23] MEDS: Polyethylene Glycol 3350 17 GM Packet PO SCH ×2 (09:50→20:43)
[2018-12-23] MEDS: Multivitamin W/ Minerals 1 TAB PO SCH (09:50)
[2018-12-23] MEDS: Ferrous Sulfate 325 MG TAB PO SCH (09:50)
[2018-12-23] MEDS: Finasteride 5 MG TAB PO SCH (09:50)
[2018-12-23] MEDS: Carbidopa/Levodopa 25-100 mg Tablet PO SCH ×3 (09:50→22:00)
--- NOTE | 2018-12-23 12:49 | PDOC.PN ---
- Subjective Encounter Start Date: 12/23/18 Encounter Start Time: 07:15 -: old records requested/rev Patient seen and examined. No new complaints. No overnight events - Objective Resuscitation Status - Order Detail: 12/20/18 03:18 Resuscitation Status Routine Resuscitation Status: DNAR: NO Resuscitation Discussed with: Confirmed with OOH directive MAR Reviewed: Yes Vital Signs & Weight: Vital Signs (12 hours) Temp Pulse Resp BP Pulse Ox 12/23/18 08:00 98.4 F 74 16 126/64 97 Weight Weight 178 lb I&O: 12/22/18 12/23/18 12/24/18 06:59 06:59 06:59 Intake Total 2440 645 Output Total 1300 775 Balance 1140 -130 Result Diagrams: 12/23/18 03:56 12/23/18 03:56 Additional Labs: Accuchecks 12/23/18 12/23/18 12/22/18 11:47 05:26 20:30 POC Glucose 121 H 92 90 12/22/18 12/22/18 16:51 12:20 POC Glucose 97 118 H Phys Exam - Physical Examination Constitutional: NAD HEENT: PERRLA, moist MMs, sclera anicteric Neck: no JVD, supple Respiratory: no wheezing, no rales, no rhonchi Cardiovascular: RRR, no significant murmur, no rub Gastrointestinal: soft, non-tender, no distention, positive bowel sounds Musculoskeletal: no edema, pulses present Neurological: moves all 4 limbs Lymphatic: no nodes Psychiatric: normal affect Skin: no rash, normal turgor Dx/Plan (1) Acute metabolic encephalopathy Code(s): G93.41 - METABOLIC ENCEPHALOPATHY Status: Acute (2) Compression fracture of L4 vertebra Code(s): S32.040A - WEDGE COMPRESSION FRACTURE OF FOURTH LUMBAR VERTEBRA, INIT Status: Acute (3) Renal mass Code(s): N28.89 - OTHER SPECIFIED DISORDERS OF KIDNEY AND URETER Status: Acute (4) BPH (benign prostatic hyperplasia) Code(s): N40.0 - BENIGN PROSTATIC HYPERPLASIA WITHOUT LOWER URINRY TRACT SYMP Status: Chronic (5) CKD (chronic kidney disease) stage 2, GFR 60-89 ml/min Code(s): N18.2 - CHRONIC KIDNEY DISEASE, STAGE 2 (MILD) Status: Chronic (6) Dementia Code(s): F03.90 - UNSPECIFIED DEMENTIA WITHOUT BEHAVIORAL DISTURBANCE Status: Chronic (7) Parkinson disease Code(s): G20 - PARKINSON'S DISEASE Status: Chronic - Plan cont current plan of care, social work assistant * based on his perfornance status, doubt he is candidate for any kind of treatment for any recovery * medication reviewed as below * symptomatic treatment * he should be hospice candidate * palliative care following * discharge planning to [place] * prognosis is very poor. Review of Systems - Review of Systems Other: not reliable with pt as he has baseline cognitive deficit - Medications/Allergies Allergies/Adverse Reactions: Allergies Allergy/AdvReac Type Severity Reaction Status Date / Time Sulfa (Sulfonamide Allergy Verified 12/20/18 01:48 Antibiotics) Medications: Current Medications Acetaminophen (Tylenol) 1,000 mg PO Q6H PRN PRN Reason: Mild Pain (1-3) Bisacodyl (Dulcolax) 10 mg PO DAILYPRN PRN PRN Reason: Constipation Carbidopa/Levodopa (Sinemet 25-100) 1 tab PO TID [facility] Last Admin: 12/23/18 09:50 Dose: 1 tab Famotidine (Pepcid) 20 mg PO BID [facility] Last Admin: 12/23/18 09:50 Dose: 20 mg Ferrous Sulfate (Feosol) 325 mg PO DAILY [facility] Last Admin: 12/23/18 09:50 Dose: 325 mg Finasteride (Proscar) 5 mg PO DAILY [facility] Last Admin: 12/23/18 09:50 Dose: 5 mg Hydralazine HCl (Apresoline) 10 mg SLOW IVP Q4H PRN PRN Reason: SBP > 180 and HR < 70 Ceftriaxone Sodium 2 gm/ (Sodium Chloride) 100 mls @ 200 mls/hr IVPB Q24HR [facility] Last Admin: 12/23/18 04:00 Dose: 100 mls Sodium Chloride (Normal Saline 0.9%) 1,000 mls @ 30 mls/hr IV .Q24H [facility] Last Admin: 12/22/18 16:00 Dose: 1,000 mls Insulin Human Lispro (Humalog) 0 units SC .MILD SLIDING SCALE PRN; Protocol PRN Reason: MILD SLIDING SCALE Insulin Human Lispro (Humalog) 0 units SC .BEDTIME SLIDING SC PRN; Protocol PRN Reason: BEDTIME SLIDING SCALE Iron/Minerals/Multivitamins (Theragran M) 1 tab PO DAILY [facility] Last Admin: 12/23/18 09:50 Dose: 1 tab Mirabegron (Myrbetriq Er) 50 mg PO DAILY [facility] Last Admin: 12/23/18 09:50 Dose: 50 mg Mirtazapine (Remeron) 7.5 mg PO HS [facility] Last Admin: 12/22/18 21:51 Dose: 7.5 mg Ondansetron HCl (Zofran Odt) 4 mg PO Q6H PRN PRN Reason: Nausea/Vomiting Ondansetron HCl (Zofran) 4 mg IVP Q6H PRN PRN Reason: Nausea/Vomiting Polyethylene Glycol (Miralax) 17 gm PO BID [facility] Last Admin: 12/23/18 09:50 Dose: 17 gm Senna/Docusate Sodium (Senokot S) 2 tab PO BIDPRN PRN PRN Reason: Constipation Sodium Chloride (Flush - Normal Saline) 10 ml IVF Q12HR [facility] Last Admin: 12/23/18 09:50 Dose: 10 ml Sodium Chloride (Flush - Normal Saline) 10 ml IVF PRN PRN PRN Reason: Saline Flush Tamsulosin HCl (Flomax) 0.4 mg PO BID [facility] Last Admin: 12/23/18 09:50 Dose: 0.4 mg
--- NOTE | 2018-12-23 13:21 | NM ---
NUCLEAR MEDICINE BONE SCAN WHOLE BODY: (SKELETAL SCINTIGRAPHY) DATE: 12-23-18 HISTORY: 73-year-old male with renal malignancy and low back pain. L4 fracture. TECHNIQUE: IV injection of [id number]: 31.6 mCi 3 hour delayed whole body skeletal scintigraphy in anterior and posterior views. FINDINGS: There is a transversely oriented broad thin band of high uptake at the superior aspect of the L4 vert ebral body, corresponding to the compression fracture demonstrated on the CT of 12-19-18, of indetermin ate age. There is a moderately large crescentic region of uptake in the lower pole of the left kidney, but onl y a tiny focus in the contralateral right renal pelvis. There is activity in the urinary bladder. Inc reased uptake in the bilateral knees and shoulders are consistent with DJD. Mildly increased uptake a t the lateral aspect of the right rib cage is nonspecific. Increased uptake in the midface may repres ent ethmoid sinus disease and maxillary odontogenic disease. Clinical correlation recommended. IMPRESSION: 1. Evidence for compression fracture of the superior endplate of L4 of indeterminate age, presumably osteoporotic compression fracture. 2. No convincing evidence of skeletal metastatic disease. 3. Osteoarthrosis of major joints. JN Yvette POS: TPC
--- NOTE | 2018-12-23 15:32 | CT ---
CT Renal Perc Biopsy History: [Left renal mass] Comparison: CT abdomen and pelvis December 19, 2018 Findings: Patient was brought to the CT suite. Questions were answered. Informed consent was obtained. Timeout performed. The patient's left flank was prepped and draped in normal sterile fashion. 5 mL of lidocaine was inst illed into the superficial and deep soft tissues. Small to moderate was made. Using an 18-gauge guidance needle (3) 11 mm cores were obtained. Patholog y confirmed adequacy. No subcapsular or perinephric hematoma. Gelfoam was used to plug the tract site . Impression: Technically successful CT-guided left renal mass biopsy Transcribed Date/Time: 12/23/2018 3:32 PM
[2018-12-23] MEDS: Sodium Chloride 0.9% 1,000 ML IV SCH ×2 (16:04→22:18)
[2018-12-23] MEDS: Mirtazapine 15 MG TAB PO SCH (21:59)
[2018-12-24] MEDS: cefTRIAXone\\ROCEPHIN 2 GM in Sodium Chloride 0.9% 100 ML IVPB SCH (03:17)
[2018-12-24] MEDS: Tamsulosin HCl 0.4 MG CAP PO SCH ×2 (10:47→21:30)
[2018-12-24] MEDS: Famotidine 20 MG TAB PO SCH ×2 (10:48→21:35)
[2018-12-24] MEDS: Multivitamin W/ Minerals 1 TAB PO SCH (10:48)
[2018-12-24] MEDS: Finasteride 5 MG TAB PO SCH (10:48)
[2018-12-24] MEDS: Ferrous Sulfate 325 MG TAB PO SCH (10:48)
[2018-12-24] MEDS: Carbidopa/Levodopa 25-100 mg Tablet PO SCH ×3 (10:48→21:30)
[2018-12-24] MEDS: Polyethylene Glycol 3350 17 GM Packet PO SCH (10:49)
--- NOTE | 2018-12-24 13:26 | PDOC.PN ---
- Subjective Encounter Start Date: 12/24/18 Encounter Start Time: 10:15 Patient seen and examined. No new complaints. No overnight events - Objective Resuscitation Status - Order Detail: 12/20/18 03:18 Resuscitation Status Routine Resuscitation Status: DNAR: NO Resuscitation Discussed with: Confirmed with OOH directive MAR Reviewed: Yes Vital Signs & Weight: Vital Signs (12 hours) Temp Pulse Resp BP Pulse Ox 12/24/18 08:00 98.1 F 74 16 128/60 98 Weight Weight 178 lb I&O: 12/23/18 12/24/18 12/25/18 06:59 06:59 06:59 Intake Total 645 350 Output Total 775 Balance -130 350 Result Diagrams: 12/23/18 03:56 12/23/18 03:56 Additional Labs: Accuchecks 12/24/18 12/23/18 12/23/18 05:43 19:55 16:07 POC Glucose 90 105 103 Phys Exam - Physical Examination Constitutional: NAD HEENT: PERRLA, moist MMs, sclera anicteric Neck: no JVD, supple Respiratory: no wheezing, no rales, no rhonchi Cardiovascular: RRR, no significant murmur, no rub Gastrointestinal: soft, non-tender, no distention, positive bowel sounds Musculoskeletal: no edema, pulses present Neurological: non-focal Lymphatic: no nodes Psychiatric: normal affect Skin: no rash, normal turgor Dx/Plan (1) Acute metabolic encephalopathy Code(s): G93.41 - METABOLIC ENCEPHALOPATHY Status: Acute (2) Compression fracture of L4 vertebra Code(s): S32.040A - WEDGE COMPRESSION FRACTURE OF FOURTH LUMBAR VERTEBRA, INIT Status: Acute (3) Renal mass Code(s): N28.89 - OTHER SPECIFIED DISORDERS OF KIDNEY AND URETER Status: Acute (4) BPH (benign prostatic hyperplasia) Code(s): N40.0 - BENIGN PROSTATIC HYPERPLASIA WITHOUT LOWER URINRY TRACT SYMP Status: Chronic (5) CKD (chronic kidney disease) stage 2, GFR 60-89 ml/min Code(s): N18.2 - CHRONIC KIDNEY DISEASE, STAGE 2 (MILD) Status: Chronic (6) Dementia Code(s): F03.90 - UNSPECIFIED DEMENTIA WITHOUT BEHAVIORAL DISTURBANCE Status: Chronic (7) Parkinson disease Code(s): G20 - PARKINSON'S DISEASE Status: Chronic - Plan cont current plan of care, social work manager * medication reviewed as below * symptomatic treatment * hospice evaluation * prognosis poor. Review of Systems - Review of Systems Other: not reliable due to dementia - Medications/Allergies Allergies/Adverse Reactions: Allergies Allergy/AdvReac Type Severity Reaction Status Date / Time Sulfa (Sulfonamide Allergy Verified 12/20/18 01:48 Antibiotics) Medications: Current Medications Acetaminophen (Tylenol) 1,000 mg PO Q6H PRN PRN Reason: Mild Pain (1-3) Bisacodyl (Dulcolax) 10 mg PO DAILYPRN PRN PRN Reason: Constipation Carbidopa/Levodopa (Sinemet 25-100) 1 tab PO TID [facility] Last Admin: 12/24/18 10:48 Dose: 1 tab Famotidine (Pepcid) 20 mg PO BID [facility] Last Admin: 12/24/18 10:48 Dose: 20 mg Ferrous Sulfate (Feosol) 325 mg PO DAILY [facility] Last Admin: 12/24/18 10:48 Dose: 325 mg Finasteride (Proscar) 5 mg PO DAILY [facility] Last Admin: 12/24/18 10:48 Dose: 5 mg Hydralazine HCl (Apresoline) 10 mg SLOW IVP Q4H PRN PRN Reason: SBP > 180 and HR < 70 Ceftriaxone Sodium 2 gm/ (Sodium Chloride) 100 mls @ 200 mls/hr IVPB Q24HR [facility] Last Admin: 12/24/18 03:17 Dose: 100 mls Sodium Chloride (Normal Saline 0.9%) 1,000 mls @ 30 mls/hr IV .Q24H [facility] Last Admin: 12/23/18 22:18 Dose: 1,000 mls Insulin Human Lispro (Humalog) 0 units SC .MILD SLIDING SCALE PRN; Protocol PRN Reason: MILD SLIDING SCALE Insulin Human Lispro (Humalog) 0 units SC .BEDTIME SLIDING SC PRN; Protocol PRN Reason: BEDTIME SLIDING SCALE Iron/Minerals/Multivitamins (Theragran M) 1 tab PO DAILY [facility] Last Admin: 12/24/18 10:48 Dose: 1 tab Mirabegron (Myrbetriq Er) 50 mg PO DAILY [facility] Last Admin: 12/24/18 10:48 Dose: 50 mg Mirtazapine (Remeron) 7.5 mg PO HS [facility] Last Admin: 12/23/18 21:59 Dose: 7.5 mg Ondansetron HCl (Zofran Odt) 4 mg PO Q6H PRN PRN Reason: Nausea/Vomiting Ondansetron HCl (Zofran) 4 mg IVP Q6H PRN PRN Reason: Nausea/Vomiting Polyethylene Glycol (Miralax) 17 gm PO BID [facility] Last Admin: 12/24/18 10:49 Dose: Not Given Senna/Docusate Sodium (Senokot S) 2 tab PO BIDPRN PRN PRN Reason: Constipation Sodium Chloride (Flush - Normal Saline) 10 ml IVF Q12HR [facility] Last Admin: 12/24/18 10:49 Dose: Not Given Sodium Chloride (Flush - Normal Saline) 10 ml IVF PRN PRN PRN Reason: Saline Flush Tamsulosin HCl (Flomax) 0.4 mg PO BID [facility] Last Admin: 12/24/18 10:47 Dose: 0.4 mg
[2018-12-24] MEDS: Mirtazapine 15 MG TAB PO SCH (21:35)
[2018-12-25] MEDS: cefTRIAXone\\ROCEPHIN 2 GM in Sodium Chloride 0.9% 100 ML IVPB SCH (03:52)
[2018-12-25] MEDS: Polyethylene Glycol 3350 17 GM Packet PO SCH ×3 (04:02→22:58)
[2018-12-25] MEDS: Carbidopa/Levodopa 25-100 mg Tablet PO SCH ×3 (08:34→22:56)
[2018-12-25] MEDS: Multivitamin W/ Minerals 1 TAB PO SCH (08:35)
[2018-12-25] MEDS: Famotidine 20 MG TAB PO SCH ×2 (08:35→22:56)
[2018-12-25] MEDS: Ferrous Sulfate 325 MG TAB PO SCH (08:35)
[2018-12-25] MEDS: Finasteride 5 MG TAB PO SCH (08:35)
[2018-12-25] MEDS: Tamsulosin HCl 0.4 MG CAP PO SCH ×2 (08:35→22:58)
--- NOTE | 2018-12-25 12:32 | PDOC.PN ---
- Subjective Encounter Start Date: 12/25/18 Encounter Start Time: 07:10 Patient seen and examined. No overnight events - Objective Resuscitation Status - Order Detail: 12/20/18 03:18 Resuscitation Status Routine Resuscitation Status: DNAR: NO Resuscitation Discussed with: Confirmed with OOH directive MAR Reviewed: Yes Vital Signs & Weight: Vital Signs (12 hours) Temp Pulse Resp BP BP Pulse Ox 12/25/18 08:35 97.5 F L 82 16 125/60 100 12/25/18 08:00 100 12/25/18 03:43 97.6 F 64 16 134/68 98 Weight Weight 178 lb I&O: 12/24/18 12/25/18 12/26/18 06:59 06:59 06:59 Intake Total 350 630 Output Total 500 Balance 350 130 Result Diagrams: 12/23/18 03:56 12/23/18 03:56 Additional Labs: Accuchecks 12/24/18 12/24/18 12/24/18 20:43 17:58 13:15 POC Glucose 89 99 93 Phys Exam - Physical Examination Constitutional: NAD HEENT: PERRLA, moist MMs, sclera anicteric Neck: no JVD, supple Respiratory: no wheezing, no rales, no rhonchi Cardiovascular: RRR, no significant murmur, no rub Gastrointestinal: soft, non-tender, no distention, positive bowel sounds Musculoskeletal: no edema, pulses present Neurological: moves all 4 limbs Lymphatic: no nodes Psychiatric: normal affect Skin: no rash, normal turgor Dx/Plan (1) Acute metabolic encephalopathy Code(s): G93.41 - METABOLIC ENCEPHALOPATHY Status: Acute (2) Compression fracture of L4 vertebra Code(s): S32.040A - WEDGE COMPRESSION FRACTURE OF FOURTH LUMBAR VERTEBRA, INIT Status: Acute (3) Renal mass Code(s): N28.89 - OTHER SPECIFIED DISORDERS OF KIDNEY AND URETER Status: Acute (4) BPH (benign prostatic hyperplasia) Code(s): N40.0 - BENIGN PROSTATIC HYPERPLASIA WITHOUT LOWER URINRY TRACT SYMP Status: Chronic (5) CKD (chronic kidney disease) stage 2, GFR 60-89 ml/min Code(s): N18.2 - CHRONIC KIDNEY DISEASE, STAGE 2 (MILD) Status: Chronic (6) Dementia Code(s): F03.90 - UNSPECIFIED DEMENTIA WITHOUT BEHAVIORAL DISTURBANCE Status: Chronic (7) Parkinson disease Code(s): G20 - PARKINSON'S DISEASE Status: Chronic - Plan cont current plan of care, social services assistant * await hospice placement at care home pending paper work * medication reviewed as below * symptomatic treatment. Review of Systems - Review of Systems Other: unable to review due to encephalopathy - Medications/Allergies Allergies/Adverse Reactions: Allergies Allergy/AdvReac Type Severity Reaction Status Date / Time Sulfa (Sulfonamide Allergy Verified 12/20/18 01:48 Antibiotics) Medications: Current Medications Acetaminophen (Tylenol) 1,000 mg PO Q6H PRN PRN Reason: Mild Pain (1-3) Bisacodyl (Dulcolax) 10 mg PO DAILYPRN PRN PRN Reason: Constipation Carbidopa/Levodopa (Sinemet 25-100) 1 tab PO TID [facility] Last Admin: 12/25/18 08:34 Dose: 1 tab Famotidine (Pepcid) 20 mg PO BID [facility] Last Admin: 12/25/18 08:35 Dose: 20 mg Ferrous Sulfate (Feosol) 325 mg PO DAILY [facility] Last Admin: 12/25/18 08:35 Dose: 325 mg Finasteride (Proscar) 5 mg PO DAILY [facility] Last Admin: 12/25/18 08:35 Dose: 5 mg Hydralazine HCl (Apresoline) 10 mg SLOW IVP Q4H PRN PRN Reason: SBP > 180 and HR < 70 Ceftriaxone Sodium 2 gm/ (Sodium Chloride) 100 mls @ 200 mls/hr IVPB Q24HR [facility] Last Admin: 12/25/18 03:52 Dose: 100 mls Sodium Chloride (Normal Saline 0.9%) 1,000 mls @ 30 mls/hr IV .Q24H [facility] Last Admin: 12/23/18 22:18 Dose: 1,000 mls Insulin Human Lispro (Humalog) 0 units SC .MILD SLIDING SCALE PRN; Protocol PRN Reason: MILD SLIDING SCALE Insulin Human Lispro (Humalog) 0 units SC .BEDTIME SLIDING SC PRN; Protocol PRN Reason: BEDTIME SLIDING SCALE Iron/Minerals/Multivitamins (Theragran M) 1 tab PO DAILY [facility] Last Admin: 12/25/18 08:35 Dose: 1 tab Mirabegron (Myrbetriq Er) 50 mg PO DAILY [facility] Last Admin: 12/25/18 08:35 Dose: 50 mg Mirtazapine (Remeron) 7.5 mg PO HS [facility] Last Admin: 12/24/18 21:35 Dose: 7.5 mg Ondansetron HCl (Zofran Odt) 4 mg PO Q6H PRN PRN Reason: Nausea/Vomiting Ondansetron HCl (Zofran) 4 mg IVP Q6H PRN PRN Reason: Nausea/Vomiting Polyethylene Glycol (Miralax) 17 gm PO BID [facility] Last Admin: 12/25/18 04:02 Dose: Not Given Senna/Docusate Sodium (Senokot S) 2 tab PO BIDPRN PRN PRN Reason: Constipation Sodium Chloride (Flush - Normal Saline) 10 ml IVF Q12HR [facility] Last Admin: 12/25/18 08:36 Dose: 10 ml Sodium Chloride (Flush - Normal Saline) 10 ml IVF PRN PRN PRN Reason: Saline Flush Tamsulosin HCl (Flomax) 0.4 mg PO BID [facility] Last Admin: 12/25/18 08:35 Dose: 0.4 mg
[2018-12-25] MEDS: Sodium Chloride 0.9% 1,000 ML IV SCH (14:59)
[2018-12-25] MEDS: Mirtazapine 15 MG TAB PO SCH (22:56)
[2018-12-26] MEDS: cefTRIAXone\\ROCEPHIN 2 GM in Sodium Chloride 0.9% 100 ML IVPB SCH (02:56)
--- NOTE | 2018-12-26 08:39 | PRG ---
DATE OF SERVICE: 12/26/2018 SUBJECTIVE: The patient is sleeping. He has no complaints. Nursing staff had reported hematuria a few days ago, but this is cleared up and he is now voiding clear yellow urine. His biopsies did come back from his kidney demonstrating urothelial carcinoma. OBJECTIVE: VITAL SIGNS: Temperature 98, pulse 81, respirations 12, blood pressure 131/68, saturations 100% on room air. GENERAL: Sleeping comfortably, in no apparent distress. ABDOMEN: Soft. : The patient is currently in a diaper, which was not taken down. EXTREMITIES: 1+ edema. No clubbing or cyanosis. LABORATORY DATA: Laboratory evaluation: The full set of labs are in the [facility] system, which I have reviewed. There are no new labs being done currently. 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 Given the patient's mental status, age, significant deconditioning and comorbidities, I think the best option would be hospice. The patient is not in any shape to undergo a nephroureterectomy, which is a very large surgery. I do not think he will be able to tolerate this. Palliative chemo may also be difficult, but ultimately be up to the discretion of the medical oncologists. I have attempted to reach out to the daughter and call her, but she did not answer my phone so I left a message to call back in discussing prognosis and long-term plans. I know that Hospice has been consulted and I do agree with eventual hospice admission as the patient has a very poor long-term prognosis and has a high likelihood of passing away within one year. Job ID: [id number]
[2018-12-26] MEDS: Polyethylene Glycol 3350 17 GM Packet PO SCH (09:32)
[2018-12-26] MEDS: Ferrous Sulfate 325 MG TAB PO SCH (09:34)
[2018-12-26] MEDS: Famotidine 20 MG TAB PO SCH (09:34)
[2018-12-26] MEDS: Multivitamin W/ Minerals 1 TAB PO SCH (09:34)
[2018-12-26] MEDS: Finasteride 5 MG TAB PO SCH (09:35)
[2018-12-26] MEDS: Carbidopa/Levodopa 25-100 mg Tablet PO SCH ×2 (09:35→17:57)
[2018-12-26] MEDS: Tamsulosin HCl 0.4 MG CAP PO SCH (09:35)
--- NOTE | 2018-12-26 10:08 | PDOC.PN ---
- Subjective Encounter Start Date: 12/26/18 Encounter Start Time: 07:10 Patient seen and examined. No overnight events - Objective Resuscitation Status - Order Detail: 12/20/18 03:18 Resuscitation Status Routine Resuscitation Status: DNAR: NO Resuscitation Discussed with: Confirmed with OOH directive MAR Reviewed: Yes Vital Signs & Weight: Weight Weight 178 lb I&O: 12/25/18 12/26/18 12/27/18 06:59 06:59 06:59 Intake Total 630 1460 Output Total 500 1425 Balance 130 35 Result Diagrams: 12/23/18 03:56 12/23/18 03:56 Phys Exam - Physical Examination Constitutional: NAD HEENT: PERRLA, moist MMs, sclera anicteric Neck: no JVD, supple Respiratory: no wheezing, no rales, no rhonchi Cardiovascular: RRR, no significant murmur, no rub Gastrointestinal: soft, non-tender, no distention Musculoskeletal: no edema, pulses present Neurological: non-focal, normal sensation Lymphatic: no nodes Psychiatric: normal affect Skin: no rash, normal turgor Dx/Plan (1) Acute metabolic encephalopathy Code(s): G93.41 - METABOLIC ENCEPHALOPATHY Status: Acute (2) Compression fracture of L4 vertebra Code(s): S32.040A - WEDGE COMPRESSION FRACTURE OF FOURTH LUMBAR VERTEBRA, INIT Status: Acute (3) Renal mass Code(s): N28.89 - OTHER SPECIFIED DISORDERS OF KIDNEY AND URETER Status: Acute (4) BPH (benign prostatic hyperplasia) Code(s): N40.0 - BENIGN PROSTATIC HYPERPLASIA WITHOUT LOWER URINRY TRACT SYMP Status: Chronic (5) CKD (chronic kidney disease) stage 2, GFR 60-89 ml/min Code(s): N18.2 - CHRONIC KIDNEY DISEASE, STAGE 2 (MILD) Status: Chronic (6) Dementia Code(s): F03.90 - UNSPECIFIED DEMENTIA WITHOUT BEHAVIORAL DISTURBANCE Status: Chronic (7) Parkinson disease Code(s): G20 - PARKINSON'S DISEASE Status: Chronic - Plan cont current plan of care, social work associate * medication reviewed as below * symptomatic treatment * see discharge piotr. Review of Systems - Review of Systems Other: unable to review due to encephalopathy - Medications/Allergies Allergies/Adverse Reactions: Allergies Allergy/AdvReac Type Severity Reaction Status Date / Time Sulfa (Sulfonamide Allergy Verified 12/20/18 01:48 Antibiotics) Medications: Current Medications Acetaminophen (Tylenol) 1,000 mg PO Q6H PRN PRN Reason: Mild Pain (1-3) Bisacodyl (Dulcolax) 10 mg PO DAILYPRN PRN PRN Reason: Constipation Carbidopa/Levodopa (Sinemet 25-100) 1 tab PO TID [facility] Last Admin: 12/26/18 09:35 Dose: 1 tab Famotidine (Pepcid) 20 mg PO BID [facility] Last Admin: 12/26/18 09:34 Dose: 20 mg Ferrous Sulfate (Feosol) 325 mg PO DAILY [facility] Last Admin: 12/26/18 09:34 Dose: 325 mg Finasteride (Proscar) 5 mg PO DAILY [facility] Last Admin: 12/26/18 09:35 Dose: 5 mg Hydralazine HCl (Apresoline) 10 mg SLOW IVP Q4H PRN PRN Reason: SBP > 180 and HR < 70 Ceftriaxone Sodium 2 gm/ (Sodium Chloride) 100 mls @ 200 mls/hr IVPB Q24HR [facility] Last Admin: 12/26/18 02:56 Dose: 100 mls Sodium Chloride (Normal Saline 0.9%) 1,000 mls @ 30 mls/hr IV .Q24H [facility] Last Admin: 12/25/18 14:59 Dose: 1,000 mls Insulin Human Lispro (Humalog) 0 units SC .MILD SLIDING SCALE PRN; Protocol PRN Reason: MILD SLIDING SCALE Insulin Human Lispro (Humalog) 0 units SC .BEDTIME SLIDING SC PRN; Protocol PRN Reason: BEDTIME SLIDING SCALE Iron/Minerals/Multivitamins (Theragran M) 1 tab PO DAILY [facility] Last Admin: 12/26/18 09:34 Dose: 1 tab Mirabegron (Myrbetriq Er) 50 mg PO DAILY [facility] Last Admin: 12/26/18 09:34 Dose: 50 mg Mirtazapine (Remeron) 7.5 mg PO HS [facility] Last Admin: 12/25/18 22:56 Dose: 7.5 mg Ondansetron HCl (Zofran Odt) 4 mg PO Q6H PRN PRN Reason: Nausea/Vomiting Ondansetron HCl (Zofran) 4 mg IVP Q6H PRN PRN Reason: Nausea/Vomiting Polyethylene Glycol (Miralax) 17 gm PO BID [facility] Last Admin: 12/26/18 09:32 Dose: Not Given Senna/Docusate Sodium (Senokot S) 2 tab PO BIDPRN PRN PRN Reason: Constipation Sodium Chloride (Flush - Normal Saline) 10 ml IVF Q12HR [facility] Last Admin: 12/26/18 09:32 Dose: Not Given Sodium Chloride (Flush - Normal Saline) 10 ml IVF PRN PRN PRN Reason: Saline Flush Tamsulosin HCl (Flomax) 0.4 mg PO BID [facility] Last Admin: 12/26/18 09:35 Dose: 0.4 mg
--- NOTE | 2018-12-26 10:09 | DIS ---
DATE OF ADMISSION: 12/20/2018 DATE OF DISCHARGE: 12/26/2018 PRIMARY CARE PHYSICIAN: Dr. Casper. DISCHARGE DISPOSITION: care home with hospice. PRIMARY DISCHARGE DIAGNOSES: 1. Compression fracture of L4 vertebra. 2. Acute metabolic encephalopathy. 3. 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 SECONDARY DISCHARGE DIAGNOSES: Parkinson disease, advanced dementia, chronic kidney disease stage 3, benign enlargement of prostate. PRIMARY PROCEDURE/OPERATION: Renal biopsy. RADIOLOGICAL INVESTIGATION: CT brain, bone scan. SIGNIFICANT LABORATORY DATA: Hemoglobin 12.6. INR 1.2. Creatinine 1.25. DISCHARGE MEDICATIONS: The patient will continue all his previous medication. 1. Dulcolax 10 mg daily p.r.n. 2. Sinemet CR one tablet t.i.d. 3. Ferrous sulfate 325 mg daily. 4. Proscar 5 mg daily. 5. Lasix 10 mg daily. 6. Mirabegron 50 mg daily. 7. Remeron 7.5 mg at bedtime. 8. Multivitamin one tablet daily. 9. MiraLAX 17 g p.o. b.i.d. 10. Ocuvite one capsule b.i.d. CONTRAINDICATION: None. CODE STATUS: DNR. INPATIENT WAREHOUSEMAN: Dr. Hayden Joyce was consulted, who recommended hospice care. Dr. Yanez was consulted for compression fracture. Dr. Caicedo was consulted for renal mass. TEST RESULTS PENDING ON DISCHARGE: None. ALLERGIES: SULFA DRUGS. DISCHARGE PLAN: The patient will be discharged to long term with hospice. HOSPITAL COURSE: A 73-year-old male, who was admitted by Dr. Jarrett. Please see his H and P for further details. The patient on admission having encephalopathy. His CT brain was unremarkable. The patient was also complaining of abdominal pain. He was found with left renal mass, which required biopsy and biopsy turned out to be positive for urothelial malignancy high-grade. The patient also had L4 compression fracture and bone scan was negative for any metastasis. Oncology was recommending palliative care and hospice care, because the patient's performance status is extremely poor and he cannot have any kind of surgical or medical treatment regarding his cancer. While in hospital, he was given comfort care. Palliative Care was following and the patient will be discharged to long term with hospice. In the hospital, his culture remained negative. We discontinued antibiotic therapy on discharge. He will continue above-mentioned medication. Paperwork for discharge done, discharge medication reconciliation done. I have seen and examined the patient at bedside today. His examination is unchanged and stable. His vitals are also stable. At this point, the patient's medical power of insurance defense attorney, his sister is going to come in town on Friday night. At that point, the patient will have paperwork for hospice will be done at long term. As long as long term able to take him over weekend, then the patient is otherwise stable for discharge, therefore comfort care only and the patient's sister will finish paperwork for hospice after discharged to long term. Job ID: [id number]
[2018-12-26 16:52] VITALS: BP 128/65; TEMP 98.2
[2018-12-26] MEDS: Sodium Chloride 0.9% 1,000 ML IV SCH (17:57)
== END 2018-12-26 18:16 | DRG 689 ==
LOC: ERS 21:07 → ONC 12-20 00:46
PROVIDERS: ADMIT Family Medicine; ATTEND Family Medicine
PROC: 0T913ZX Drainage of Left Kidney, Percutaneous Approach, Diagnostic (ICD-10-PCS; principal; 2018-12-22)
DX: N39.0 Urinary tract infection, site not specified (principal); G92 Toxic encephalopathy; M48.56XA Collapsed vertebra, not elsewhere classified, lumbar region, initial encounter for fracture; C79.51 Secondary malignant neoplasm of bone; C68.0 Malignant neoplasm of urethra; G20 Parkinson's disease; F03.90 Unspecified dementia, unspecified severity, without behavioral disturbance, psychotic disturbance, mood disturbance, and anxiety; N40.0 Benign prostatic hyperplasia without lower urinary tract symptoms; M19.90 Unspecified osteoarthritis, unspecified site; N18.2 Chronic kidney disease, stage 2 (mild); D63.1 Anemia in chronic kidney disease
CPT/HCPCS: 36415; 36416; 50200; 70450; 77012; 78306; 80048; 80053; 83735; 84153; 85007; 85014; 85018; 85025; 85027; 85049; 85610; 85730; 88305; 88333; 88341; 88342; A9503; J0696; J2250; J3010; J3490

== ENCOUNTER 2019-06-29 15:16 | Inpatient (IN) | payer MEDICAID, MEDICARE, OTHER ==
[~2019-06-29 15:16] MED LIST: Iopamidol 370 76% 50 ML VIAL FS ONE
[2019-06-29 16:07] LABS: #Eosinphils 0.1 thou/uL (0.0-0.7); #Lymphocytes 0.5 thou/uL (1.20-3.40); #Monocytes 1.1 thou/uL (0.11-0.59); #Neutrophils 8.2 thou/uL (1.40-6.50); %Basophils 0.3 % (0.0-1.0); %Lymphocytes 5.4 % (21.0-51.0); %Monocytes 10.7 % (0.0-10.0); %Neutrophils 82.6 % (42.0-75.0); Hemoglobin 12.3 g/dL (14.0-18.0); Mean Corpuscular HGB CONC 34.8 g/dL (32.0-36.0); Mean Corpuscular Hemoglobin 31.1 pg (27.0-31.0); Mean Corpuscular Volume 89.4 fL (78.0-98.0); Platelet Count 193 thou/uL (130-400); RBC Distribution Width 12.2 % (11.5-14.5); Red Blood Cell (RBC) Count 3.96 mill/uL (4.70-6.10); White Blood Cell (WBC) Count 9.9 thou/uL (4.8-10.8)
[2019-06-29 16:34] LABS: ALT (SGPT) Less than 7 U/L (8-55); AST (SGOT) 24 U/L (5-34); Albumin 3.5 g/dL (3.4-4.8); Alkaline Phosphatase 92 U/L (40-110); Anion Gap 13 mmol/L (10-20); BUN (Urea Nitrogen) 17 mg/dL (8.4-25.7); Bilirubin, Total 0.5 mg/dL (0.2-1.2); Calc. Creatinine Clearance 0 mL/min (70-130); Calcium 8.9 mg/dL (7.8-10.44); Carbon Dioxide 28 mmol/L (23-31); Chloride 104 mmol/L (98-107); Estimated GFR-MDRD 52; Globulin 3.2 g/dL (2.4-3.5); Glucose 121 mg/dL (83-110); Lipase 12 U/L (8-78); Protein, Total 6.7 g/dL (5.8-8.1); Sodium 140 mmol/L (136-145)
--- NOTE | 2019-06-29 16:42 | RAD ---
Right hip 2 views HISTORY: Fall. Right hip injury. FINDINGS: Marked varus angulation at a basicervical fracture. Moderate shortening and impaction. Dege nerative changes hip joint. IMPRESSION: Right hip fracture.
--- NOTE | 2019-06-29 16:44 | RAD ---
Chest one view HISTORY: Preop. Hip fracture. COMPARISON: 11/13/2018. FINDINGS: Cardiac silhouette is magnified by projection. Pulmonary vasculature is unremarkable. Lungs remain hyperinflated mediastinum is midline with aortic calcification. No confluent airspace consolidation or evidence of pneumothorax. Old left rib and clavicular fractures. Calcified left axil justin lymph nodes. IMPRESSION: Chronic-type findings are stable. No active cardiopulmonary abnormalities are demonstrate d..
--- NOTE | 2019-06-29 16:45 | RAD ---
AP PELVIS: 06/29/19 INDICATIONS: Fall with injury to right hip. Trauma. FINDINGS: There is a displaced transcervical fracture through the right femoral neck. Moderate degenerative changes at both hips. Bony pelvis appears intact. IMPRESSION: Right hip fracture. POS: C
--- NOTE | 2019-06-29 17:06 | CT ---
CT Brain WO Con: 06/29/2019 3:28 PM CLINICAL HISTORY: Trauma. COMPARISON: None. FINDINGS: Hemorrhage: None. Ventricular system: Normal in size and morphology for the patient's age. Cerebral parenchyma: Microvascular ischemic disease Midline shift: None. Mass: No mass effect. Calvarium: Normal. Visualized Paranasal sinuses: Clear. IMPRESSION: No acute intracranial abnormalities.
--- NOTE | 2019-06-29 17:22 | CT ---
CT Cervical Spine WO Con Indication: Pain/Injury COMPARISON: None FINDINGS: Acute fracture/subluxation: None Spinal alignment: No acute malalignment. Straightening of normal cervical curvature. Vertebral body heights: Maintained. Cervical spine degenerative change: Moderate degenerative change. There is diffuse osseous lucency wh ich may be on the basis of demineralization. Incidental note of thyroid gland heterogeneity. There is granulomas consultation of the left lung ape x. IMPRESSION: No acute osseous abnormality.
--- NOTE | 2019-06-29 17:27 | CT ---
EXAM: Chest, Abdomen and Pelvic CT scan with contrast: HISTORY: HISTORY: Fall COMPARISON: None FINDINGS: Mild subpleural patchy opacities, bilaterally, may relate to atelectasis. No pleural effusion. No pneumothorax. No adenopathy. No acute process of the mediastinal structures. Liver: Scattered hypodensities, likely cysts, although incompletely characterized due to small size a nd streak artifact Gallbladder:Cholelithiasis and moderate distention Pancreas:Unremarkable Spleen:Unremarkable. Adrenal glands:Unremarkable. Kidneys:Large heterogeneous mass occupies the upper to mid left kidney and extends to the renal hilum .Mild urothelial thickening of the proximal left ureter is present. Bowel: Moderate retained fecal material in the colon. Limited assessment of bowel without enteric con trast. There is hematoma and ascites/edema of the right lower quadrant, adjacent displaced, angulated right femoral neck fracture. Urinary Bladder: The urinary bladder is unremarkable. Large, heterogeneous prostate gland measures 6.5 cm transverse. Adenopathy:No adenopathy within the abdomen or pelvis. Free Air: No free air. Ascites: Mild free fluid on the right lower quadrant. Osseous structures: Angulated, displaced right femoral neck fracture. Moderate chronic compression de formity of L4 IMPRESSION: Right femoral neck fracture with associated hematoma of the adjacent soft tissues of the pelvis and r ight lower quadrant. Heterogeneous mass of the left kidney indicative of left renal malignancy. Patient has undergone nighat l biopsy, 12/22/2018. Correlate with pathology results. Additional findings are detailed above. Transcribed Date/Time: 06/29/2019 5:42 PM
--- NOTE | 2019-06-29 18:50 | HP ---
REQUESTING PHYSICIAN: Dr. Navarro. ATTENDING SURGEON: Dr. Wells. CONSULTATION: Orthopedics, Dr. Schulte. HISTORY OF PRESENT ILLNESS: The patient is a 73-year-old man, who was brought to the emergency department from the [facility] after having an unwitnessed fall. The patient had a screening x-ray there that showed a right hip fracture. The patient once here would undergo full trauma assessment to include CT of the head, C-spine, chest, abdomen, and pelvis. There were no acute findings other than his right femoral neck fracture. The patient does have Alzheimer dementia. He is verbal, but very poor historian. Majority of his information was gleaned from the records from the [facility]. ALLERGIES: SULFA. CURRENT MEDICATIONS: 1. Iron. 2. Finasteride. 3. Lasix. 4. Myrbetriq. 5. MiraLAX. 6. Sinemet. 7. PreserVision. 8. Seroquel. 9. Docusate. PAST MEDICAL HISTORY: BPH, type 2 diabetes, cataracts, Alzheimer dementia, Parkinson's, anemia. PAST SURGICAL HISTORY: Unknown. SOCIAL HISTORY: The patient lives in a long-term care facility. EMS reports an [id number] DNR and that he is on hospice care for renal cancer. REVIEW OF SYMPTOMS: Ten-point review of systems is negative as otherwise stated. PHYSICAL EXAMINATION: VITAL SIGNS: Blood pressure 132/74, heart rate 76, respirations 17, oxygen saturation 99% on room air, and temperature is 98.9. GENERAL: The patient is resting comfortably in bed. He is awake, verbal, confused, but calm and appropriate. He will follow commands. [place] Coma Scale is 14, -1 for confusion. HEENT. Head is normocephalic and atraumatic. Eyes, extraocular motion is intact, though the patient did have difficulty consistently following my instructions. Ears are atraumatic without discharge. Nose is atraumatic without discharge. Oropharynx is clear. NECK: Nontender. Trachea is midline. No JVD. CHEST: Clear to auscultation with good inspiratory and expiratory effort. HEART: Regular rate and rhythm. ABDOMEN: Soft, flat, nontender with active bowel sounds. PELVIS: Stable with tenderness to palpation to the right hip consistent with his fracture. EXTREMITIES: Neurovascularly intact x4. BACK: By report is atraumatic and nontender. LABORATORY FINDINGS: White blood cell count 9.9, hemoglobin 12.3, hematocrit 35.4, platelets 193. Sodium 140, potassium is 5.0, chloride 104, CO2 of 28, BUN 17, creatinine 1.34, glucose 121. LFTs are unremarkable. Lipase 12. RADIOGRAPHIC REPORTS: CT of the brain without contrast shows no intracranial abnormalities. CT of the C-spine without contrast shows no acute osseous abnormality. CT of the chest, abdomen, and pelvis with contrast shows a right femoral neck fracture with associated hematoma of the adjacent soft tissues of the pelvis and right lower quadrant. AP chest x-ray shows no active cardiopulmonary abnormalities. AP pelvis shows a displaced transcervical fracture through the right femoral neck. Views of the right hip again showed a right hip fracture. ASSESSMENT: 1. Status post ground level fall. 2. Right femoral neck fracture. 3. Chronic anemia due to disease process. 4. Chronic kidney disease, not graded. 5. History of Alzheimer dementia, Parkinson's, renal cancer, BPH, type 2 diabetes. 6. Acute pain secondary to trauma. PLAN: Will be to admit the patient to the surgical floor. He will be made n.p.o. after midnight. He will have pain control, pulmonary toilet, gastritis and mechanical VTE prophylaxis. We will restart all of his home medications. It does not appear that he is on any blood thinners. He will likely have surgery tomorrow, begin physical and occupational therapy, then will possibly be returned to his care facility. Evaluation, examination, laboratory, and radiographic findings were discussed by the ER with Dr. Wells prior to this dictation. Dr. Schulte was also notified by the emergency department. Job ID: [id number]
[2019-06-29] MEDS ORDERED: Cyclobenzaprine 10 MG TAB PO PRN (19:18)
[2019-06-29] MEDS ORDERED: Dextrose 50% Abboject 50 ML SYRINGE SLOW IVP PRN (19:18)
[2019-06-29] MEDS ORDERED: traMADol HCl 50 MG TAB PO PRN ×2 (19:18)
[2019-06-29] MEDS ORDERED: Morphine 2 MG/ML SYRINGE SLOW IVP PRN (19:18)
[2019-06-29] MEDS ORDERED: Ondansetron ODT 4 MG TAB PO PRN (19:18)
[2019-06-29] MEDS ORDERED: Ondansetron PF 4 MG/2 ML Vial IVP PRN (19:18)
[2019-06-29] MEDS ORDERED: Insulin Regular 300 UNITS/3 ML VIAL SC PRN ×2 (19:18)
[2019-06-29] MEDS ORDERED: Dextrose 5% in Water 1,000 ML IV PRN (19:18)
[2019-06-29] MEDS ORDERED: Morphine 4 MG/ML VIAL SLOW IVP PRN (19:18)
[2019-06-29] MEDS ORDERED: hydrALAZINE 20 MG/ML VIAL SLOW IVP PRN (19:18)
[2019-06-29 20:25] VITALS: BMI 21.2
[2019-06-29] MEDS: Famotidine 20 MG TAB PO SCH (20:51)
[2019-06-29] MEDS: Acetaminophen 1,000 MG in Premix Bag 1 BAG IVPB SCH (20:52)
[2019-06-29] MEDS: Sodium Chloride 0.9% 1,000 ML IV SCH (23:46)
[2019-06-30] MEDS: Acetaminophen 1,000 MG in Premix Bag 1 BAG IVPB SCH ×3 (01:54→14:31)
[2019-06-30 05:41] LABS: #Eosinphils 0.2 thou/uL (0.0-0.7); #Lymphocytes 0.8 thou/uL (1.20-3.40); #Neutrophils 6.9 thou/uL (1.40-6.50); %Basophils 0.3 % (0.0-1.0); %Eosinophils 2.1 % (0.0-10.0); %Lymphocytes 9.3 % (21.0-51.0); %Monocytes 10.9 % (0.0-10.0); %Neutrophils 77.4 % (42.0-75.0); Mean Corpuscular HGB CONC 34.9 g/dL (32.0-36.0); Mean Corpuscular Hemoglobin 31.3 pg (27.0-31.0); Mean Corpuscular Volume 89.6 fL (78.0-98.0); Mean Platelet Volume 7.5 fL (7.4-10.4); Platelet Count 176 thou/uL (130-400); Red Blood Cell (RBC) Count 3.85 mill/uL (4.70-6.10)
[2019-06-30 06:02] LABS: Anion Gap 10 mmol/L (10-20); BUN (Urea Nitrogen) 16 mg/dL (8.4-25.7); Calc. Creatinine Clearance 60 mL/min (70-130); Calcium 8.9 mg/dL (7.8-10.44); Carbon Dioxide 27 mmol/L (23-31); Chloride 107 mmol/L (98-107); Estimated GFR-MDRD 63; Glucose 104 mg/dL (83-110); Potassium 4.1 mmol/L (3.5-5.1); Sodium 140 mmol/L (136-145)
[2019-06-30] MEDS: Sodium Chloride 0.9% 1,000 ML IV SCH ×3 (07:49→23:33)
[2019-06-30] MEDS: Famotidine 20 MG TAB PO SCH (07:52)
[2019-06-30] MEDS ORDERED: Senokot S 8.6-50 MG TAB PO SCH ×2 (09:00→21:00)
[2019-06-30] MEDS: Polyethylene Glycol 3350 17 GM Packet PO SCH (09:31)
[2019-06-30] MEDS: Senokot S 8.6-50 MG TAB PO SCH (09:31)
[2019-06-30] MEDS ORDERED: Bupivacaine HCl 0.5%/Epinephrine 1:200,000/PF 30 ml Vial ONE (10:31)
--- NOTE | 2019-06-30 10:31 | CON ---
DATE OF CONSULTATION: 06/30/2019 REQUESTING PHYSICIAN: Manuela Wells MD CONSULTING PHYSICIAN: Malick Schulte MD REASON FOR CONSULTATION: Acute right hip femoral neck fracture. BRIEF CLINICAL HISTORY: Elvin is a 73-year-old long-term resident that had an unwitnessed fall yesterday evening. He was brought to [facility], where plain radiographs demonstrated a right hip mid cervical femoral neck fracture with shortening. He was admitted by the Trauma Team and our service was consulted for definitive orthopedic management of this problem. PAST MEDICAL HISTORY: Significant for biopsy based diagnosis of renal cell carcinoma, dementia, diabetes type 2, and Parkinson's. He has been a resident in [place] and also on palliative care since December of this year for those problems. PHYSICAL EXAMINATION: GENERAL: This is an elderly male, in no apparent distress or discomfort. He is alert, but minimally responsive. He does respond to simple commands. EXTREMITIES: Visual inspection of the left lower extremity demonstrates him to have normal external landmarks. No tenderness. No pain is noted with the range of motion of the left, but the right lower extremity is provocative and concordant for pain, which is exquisite. No abrasions are noted in and around the fracture site. 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 IMPRESSION: Right hip acute traumatic displaced femoral neck fracture. PLAN: 1. I spoke to the patient's sister, who is power of blocking machine operator and discussed the risks, benefits, options, alternatives, and rationale for proceeding with right hip hemiarthroplasty and she is ready to proceed. All questions were answered. No guarantee of outcome stated or implied. 2. The patient has been posted for afternoon case today. Job ID: [id number]
[2019-06-30] MEDS ORDERED: Rocuronium Bromide 10 MG/ML (10ML VIAL) ONE (10:52)
[2019-06-30] MEDS ORDERED: Lidocaine 1% PF 5 ML VIAL ONE ×2 (10:52→16:02)
[2019-06-30] MEDS ORDERED: PROPOFOL 200 MG/20 ML VIAL ONE (10:52)
[2019-06-30] MEDS ORDERED: Ondansetron PF 4 MG/2 ML Vial ONE (10:52)
--- NOTE | 2019-06-30 12:41 | PRG ---
DATE OF SERVICE: 06/30/2019 SUBJECTIVE: The patient is currently on the surgical floor. He is status post unwitnessed fall at the [facility], which he sustained a right femoral neck fracture. The patient was admitted to the hospital and was made n.p.o., and he is awaiting open reduction and internal fixation of his fracture. His acute on chronic kidney disease has resolved. His pains appear to be controlled. Again, he was made n.p.o. after midnight. PHYSICAL EXAMINATION: VITAL SIGNS: Temperature is 98.5, heart rate is 74, blood pressure is 142/62, respirations are 18, oxygen saturation is 96% on room air. GENERAL: The patient is resting comfortably in bed. He is awake and verbally responsive with what appears to be his baseline confusion that is consistent with his exam I had yesterday. HEENT: Unremarkable. LUNGS: Clear to auscultation bilaterally. HEART: Regular rate and rhythm. ABDOMEN: Soft, flat, nontender with hypoactive bowel sounds. EXTREMITIES: Neurovascularly intact x4. LABORATORY FINDINGS: White blood cell count 9.0, hemoglobin 12.0, hematocrit 34.5, platelets 176. Sodium 140, potassium 4.1, chloride 107, CO2 of 27, BUN 16, creatinine 1.14, glucose 104. IMAGING STUDIES: There are no radiographs to review this morning. ASSESSMENT: 1. Status post ground level fall. 2. Right femoral neck fracture, awaiting surgical intervention. 3. Chronic anemia due to disease process, stable. 4. Chronic kidney disease, migrated, stable/improved. 5. History of Alzheimer dementia, Parkinson's, and renal cancer. 6. Benign prostatic hypertrophy. 7. Type 2 diabetes. PLAN: Plan will be to continue supportive care. Postoperatively, we will have him evaluated by physical and occupational therapy, and the patient will likely be able to be discharged back to his facility on postop day 1. The patient was evaluated this morning with Dr. Breen during rounds. Job ID: [id number]
[2019-06-30] MEDS ORDERED: Dexamethasone 4 mg/ml Vial ONE (16:05)
[2019-06-30] MEDS: Ketorolac Tromethamine 30 MG/ML VIAL IVP SCH (17:48)
[2019-06-30] MEDS ORDERED: Promethazine HCl 25 MG/ML VIAL IM PRN (20:23)
[2019-06-30] MEDS ORDERED: Ondansetron HCl/PF 4 MG/2 ML Vial IVP PRN (20:23)
[2019-06-30] MEDS ORDERED: Promethazine HCl 25 MG/ML VIAL SLOW IVP PRN (20:23)
--- NOTE | 2019-06-30 20:43 | RAD ---
Right hip one view Postop, trauma FINDINGS: Crosstable lateral view reveals partial visualization of left hip prosthesis without obviou s hardware complication on the provided single view. IMPRESSION: Postoperative right hip. Transcribed Date/Time: 06/30/2019 8:49 PM
--- NOTE | 2019-06-30 20:46 | RAD ---
Frontal view pelvis CLINICAL HISTORY: Trauma FINDINGS: Right hip prosthesis is appropriate in alignment, where visualized. Moderate left hip joint osteoarthritis with varus angulation of the left femoral neck. IMPRESSION: Postoperative right hip.
[2019-06-30] MEDS ORDERED: Esmolol 100 MG/10 ML VIAL ONE (20:56)
[2019-06-30] MEDS ORDERED: Amiodarone 450 MG in Dextrose 5% in Water 250 ML IVPB SCH (21:15)
[2019-06-30] MEDS ORDERED: Amiodarone 150 MG in Dextrose 5% in Water 100 ML IVPB SCH (21:15)
[2019-06-30] MEDS ORDERED: Fentanyl 100 MCG/2 ML VIAL ONE (23:09)
[2019-06-30] MEDS ORDERED: Sodium Chloride 0.9% 500 ML IV SCH (23:15)
[2019-06-30 23:53] LABS: Anion Gap 13 mmol/L (10-20); BUN (Urea Nitrogen) 16 mg/dL (8.4-25.7); Calc. Creatinine Clearance 62 mL/min (70-130); Calcium 8.7 mg/dL (7.8-10.44); Carbon Dioxide 22 mmol/L (23-31); Chloride 109 mmol/L (98-107); Estimated GFR-MDRD 65; Glucose 117 mg/dL (83-110); Magnesium 1.8 mg/dL (1.6-2.6); Phosphorus 2.7 mg/dL (2.3-4.7); Potassium 3.9 mmol/L (3.5-5.1); Sodium 140 mmol/L (136-145)
[2019-07-01] MEDS: Ketorolac Tromethamine 30 MG/ML VIAL IVP SCH ×2 (00:15→05:39)
[2019-07-01] MEDS: Famotidine 20 MG TAB PO SCH ×3 (00:16→20:09)
[2019-07-01] MEDS: Senokot S 8.6-50 MG TAB PO SCH ×3 (00:16→20:10)
[2019-07-01] MEDS ORDERED: Magnesium 2 GM/50 ML 2 GM in Premix Bag 1 BAG IVPB SCH (01:00)
--- NOTE | 2019-07-01 01:01 | PRG ---
DATE OF SERVICE: 06/30/2019 SUBJECTIVE: Mr. Nicole is a 73-year-old male with history of Alzheimer Dementia, Parkinson's, renal cancer, benign prostatic hypertrophy, diabetes type 2, chronic kidney disease who was coming after ground level fall, sustained right femur neck fracture. He underwent ORIF of right femur neck fracture today. Postop, the patient developed episode of atrial fibrillation with ventricular response 150 to 170 per minute. The patient was started on amiodarone bolus, then amiodarone drip 1 mg/minute. The patient has been stable and he has been transferred to CCU for observation overnight. OBJECTIVE: VITAL SIGNS: Currently, the patient is hemodynamically stable with a heart rate 78, blood pressure 140/90, O2 saturation 98% on room air, and respiratory rate is 16. GENERAL: The patient's mental status is in his baseline. He is confused and not oriented. The patient able to move all four extremities. LUNGS: Clear bilaterally. HEART: Irregular rate and irregular rhythm. ABDOMEN: Soft. Postop dressing is clean, dry, intact. PLAN: Continue supportive care. Continue observation in ICU. Anticipate amiodarone drip for 24 hours. We will check electrolyte tomorrow. The patient will be transferred back to his [facility] facility. Job ID: [id number] MTDD
[2019-07-01] MEDS: CEFAZOLIN 2 GM in Premix Bag 1 BAG IVPB SCH ×3 (01:44→17:28)
[2019-07-01 05:23] LABS: #Lymphocytes 0.3 thou/uL (1.20-3.40); #Monocytes 0.8 thou/uL (0.11-0.59); #Neutrophils 10.4 thou/uL (1.40-6.50); %Eosinophils 0.1 % (0.0-10.0); %Lymphocytes 2.3 % (21.0-51.0); %Monocytes 6.8 % (0.0-10.0); %Neutrophils 90.7 % (42.0-75.0); Hemoglobin 10.5 g/dL (14.0-18.0); Mean Corpuscular HGB CONC 34.4 g/dL (32.0-36.0); Mean Corpuscular Hemoglobin 31.2 pg (27.0-31.0); Mean Corpuscular Volume 90.5 fL (78.0-98.0); Mean Platelet Volume 7.9 fL (7.4-10.4); Platelet Count 190 thou/uL (130-400); RBC Distribution Width 11.9 % (11.5-14.5); Red Blood Cell (RBC) Count 3.38 mill/uL (4.70-6.10); White Blood Cell (WBC) Count 11.4 thou/uL (4.8-10.8)
[2019-07-01] MEDS: Acetaminophen 325 MG TAB PO SCH ×4 (05:39→23:36)
[2019-07-01 05:50] LABS: Anion Gap 12 mmol/L (10-20); BUN (Urea Nitrogen) 18 mg/dL (8.4-25.7); Calc. Creatinine Clearance 59 mL/min (70-130); Calcium 8.2 mg/dL (7.8-10.44); Carbon Dioxide 22 mmol/L (23-31); Chloride 109 mmol/L (98-107); Estimated GFR-MDRD 62; Glucose 139 mg/dL (83-110); Magnesium 2.3 mg/dL (1.6-2.6); Phosphorus 2.5 mg/dL (2.3-4.7); Potassium 4.5 mmol/L (3.5-5.1); Sodium 138 mmol/L (136-145)
[2019-07-01] MEDS ORDERED: VIT E PO SCH (09:00)
[2019-07-01] MEDS ORDERED: VIT C PO SCH (09:00)
[2019-07-01] MEDS ORDERED: COPPER PO SCH (09:00)
[2019-07-01] MEDS ORDERED: ZINC PO SCH (09:00)
[2019-07-01] MEDS ORDERED: VIT A PO SCH (09:00)
[2019-07-01] MEDS: Carbidopa/Levodopa CR 50-200 mg Tablet PO SCH ×3 (10:07→20:09)
[2019-07-01] MEDS: Ferrous Sulfate 325 MG TAB PO SCH (10:08)
[2019-07-01] MEDS: Finasteride 5 MG TAB PO SCH (10:08)
[2019-07-01] MEDS: Furosemide 20 MG TAB PO SCH (10:08)
[2019-07-01] MEDS: Polyethylene Glycol 3350 17 GM Packet PO SCH (10:09)
[2019-07-01] MEDS: Vit A,C & E/Lutein/Minerals Tablet PO SCH (10:28)
[2019-07-01] MEDS: Sodium Chloride 0.9% 1,000 ML IV SCH ×2 (12:01→20:07)
--- NOTE | 2019-07-01 17:23 | PRG ---
DATE OF SERVICE: SUBJECTIVE: The patient is currently on the critical care unit. He was initially admitted status post ground level fall when he sustained a right femoral neck fracture. Yesterday, he underwent open reduction and internal fixation of his fracture. Intraoperatively, he went into atrial fibrillation with RVR. Last night, he was started on amiodarone first with a bolus, then a drip, which almost immediately rate controlled him. Due to his requirement for his antiarrhythmic, he was placed in the critical care unit due to no telemetry beds. This morning at the time of our evaluation, his amiodarone drip had been discontinued and he remained in a sinus rhythm, rate controlled. The patient had not worked with Physical Therapy yet. He was taking p.o., but required feedings due to his dementia. OBJECTIVE: VITAL SIGNS: Heart rate 72, blood pressure 117/62, respirations 14, and oxygen saturation is 96% on room air. GENERAL: The patient is resting comfortably in bed. His eyes are open. He follows some very simple commands. HEENT: Verbal, his inappropriate words and motor, he follows basic commands, giving him a [place] Coma Scale of 13, E4 V3 M6. Remainder of his HEENT is unchanged. LUNGS: Clear to auscultation bilaterally. HEART: Regular rate and rhythm. ABDOMEN: Soft with active bowel sounds. EXTREMITIES: Neurovascularly intact x4. Postop dressing is clean, dry, and intact. LABORATORY FINDINGS: White blood cell count 11.4, hemoglobin 10.5, hematocrit 30.6, platelets 190. Sodium 138, potassium 4.5, chloride 109, CO2 of 22, BUN 18, creatinine 1.15, glucose 139, magnesium 2.3, phosphorus 2.5. There are no radiographs reviewed this morning. ASSESSMENT AND PLAN: 1. Status post ground level fall. 2. Right femoral neck fracture, status post open reduction and internal fixation, postop day one. 3. Chronic anemia due to disease process, stable. 4. Chronic kidney disease, stable, improved. 5. History of Alzheimer dementia, Parkinson's and renal cancer. 6. History of BPH. 7. History of type 2 diabetes. PLAN: Plan will be to continue supportive care, physical and occupational therapy, and after discussion with family, they would like the patient to be placed in a [facility] facility as opposed to returning to his [place] [facility] under hospice care. We will work with social workers to accomplish this as soon as possible. Job ID: [id number]
--- NOTE | 2019-07-01 17:48 | OP ---
DATE OF PROCEDURE: 06/30/2019 PREOPERATIVE DIAGNOSIS: Right femoral neck fracture, displaced. POSTOPERATIVE DIAGNOSIS: Right femoral neck fracture, displaced. PROCEDURE PERFORMED: Right hip hemiarthroplasty. ANESTHESIA: General. FIELD MARKETING ASSOCIATE: Trevin Conroy PA-C ESTIMATED BLOOD LOSS: 200 mL. IMPLANTS: [place] size 6 femoral stem with a 28 x 56 bipolar cup and a +5 femoral head. COMPLICATIONS: None. DRAINS: None. SPECIMEN: None. OUTCOME: Stable hemiarthroplasty. INDICATIONS: The patient is a 73-year-old gentleman status post ground level fall sustaining a displaced right femoral neck fracture. After discussion with the patient and family including risks and benefits, we have decided to proceed with hemiarthroplasty in hopes of providing pain relief and improving mobility. Informed consent has been obtained. I believe all questions answered. DESCRIPTION OF PROCEDURE: The patient was brought to the operating room and a time-out was performed followed by induction of general anesthesia. The patient was positioned in a left lateral decubitus position and a sterile prep and drape was performed of the right lower extremity. Next, a curvilinear incision was made centered over the tip of the greater trochanter. After skin was sharply incised, dissection was carried down through the subcutaneous fat to the underlying tensor fascia and fascia imani. This structure was incised in-line with a skin incision and reflected anteriorly and posteriorly gaining access to the trochanteric bursa on the short external rotators. The trochanteric bursa was swept off the short external rotators and then, an elevator was passed under the abductors exposing the piriformis as well as superior and inferior gemelli. These were released from the posterior aspect of the femur, tagged and reflected posteriorly. Next, a T-capsulotomy was performed with leaflets of the capsule tagged with #1 Vicryl for eventual closure. At this point, a T-handle corkscrew was placed into the femoral head and the femoral head was removed without difficulty. Next, an oscillating saw was used to make a femoral neck cut approximately 1 cm proximal to the lesser trochanter. Once performed, excess bone fragments were then removed using a rongeur. Next, A T-handle awl was used to obtain a starting point for progressive broaching. Following the T-handle awl being passed down the canal, a lateralizing reamer was used to free some of the bone from the deep surface of the greater trochanter. T-handle awls were passed sequentially up to a size 6, it gave good fit distally. This was followed by starting with a size 4 broach, continuing up to size 6. It gave good fit and fill proximally. Next, a trial reduction was performed and a +5 head gave good stability and equalized leg lengths. The trial components were then removed from the femur. The femur and acetabulum thoroughly irrigated with Pulsavac with a total of 3 L used. The size 6 stem was introduced in the femur followed by application of the bipolar head. The hip was reduced and again found to have excellent stability in the 90/90 position. It could be internally rotated approximately 60 degrees before subluxation was encountered. The hip reduced. The capsule was then reapproximated with #1 Vicryl and the short external rotators reattached using #1 Vicryl. This was followed by #1 Vicryl for the fascia imani and tensor fascia, 0 Vicryl for the [place] fascia, 2-0 Vicryl subcutaneously, and rosa for the skin. Xeroform gauze tape dressing was applied to the right lateral thigh and the patient was transferred to recovery room in stable condition. There were no complications. He tolerated the procedure well. Job ID: [id number]
[2019-07-01] MEDS: Mirtazapine 15 MG Soltab PO SCH (20:09)
--- NOTE | 2019-07-01 22:24 | PRG ---
DATE OF SERVICE: 07/01/2019 SUBJECTIVE: Mr. Nicole is a 73-year-old male, history of Alzheimer, severe dementia, Parkinson's renal cancer, benign prostatic hypertrophy, diabetes type 2, chronic kidney disease. He was coming after ground level fall, sustained right femur fracture. He underwent ORIF, right femur fracture, postop day one. He is currently in surgical floor now. The patient remained in sinus rhythm, regular 82 minute. Other than that vital signs are stable. OBJECTIVE: GENERAL: When I am seeing the patient, he is sound asleep. I did not wake him up. VITAL SIGNS: Currently is temperature 97.6, O2 saturation 97% on room air, blood pressure 117/67, heart rate 76, respiratory rate is 18. LUNGS: Clear bilaterally. HEART: Regular rate and rhythm. ABDOMEN: Soft. PLAN: We will continue supportive care. Continue pain control. Continue DVT prophylaxis. Anticipate placement in retirement facility. Job ID: [id number]
[2019-07-02] MEDS: Acetaminophen 325 MG TAB PO SCH ×5 (05:47→22:52)
[2019-07-02 09:17] LABS: Actual Bicarbonate (HCO3a) 25.1 mEq/L (22-28); Base Excess (BEa) 0.7 mEq/L (-2.0 to +3.0); CO2 Tension 39.3 mmHg (35.0-45.0); Calcium, Ionized 1.13 mmol/L (1.12-1.30); Carboxyhemoglobin (COHb) 0.6 gm% (0.0-3.0); Hemoglobin (Hb) 10.5 g/dL (14.0-18.0); O2 Tension (PaO2) 85.7 mmHg (> 70.0); Potassium - ABG Lab 4.07 mmol/L (3.70-5.30); pH, Arterial 7.42 (7.35-7.45)
[2019-07-02 09:18] LABS: ALV-art Gradient 14.905 (0-20); Puncture Site RBA
[2019-07-02] MEDS: Sodium Chloride 0.9% 1,000 ML IV SCH ×2 (11:00→18:02)
--- NOTE | 2019-07-02 12:08 | PRG ---
DATE OF SERVICE: 07/02/2019 SUBJECTIVE: The patient is currently on the surgical floor. He was transferred up from the Critical Care Unit yesterday. He had been admitted for a right femoral neck fracture that he underwent open reduction and internal fixation. Postoperatively, he had atrial fibrillation with RVR, which converted rather quickly with amiodarone. He was stable and was able to be transferred to the surgical floor. This morning, though the patient was reported as a code green due to being not able to be awaken by his nurse. Upon review, it was noted that the patient received 100 mg of tramadol and 5 mg of Flexeril at approximately 6:30 and made the patient extremely drowsy. His exam was unremarkable for any stroke-like signs and his vitals remained stable. OBJECTIVE: VITAL SIGNS: Temperature 97.8, blood pressure 143/82 respirations 14, oxygen saturation 98% on room air. GENERAL: The patient is resting comfortably in bed. His eyes will twitch with loud verbal stimuli, with painful stimuli. His eyes open slightly. He withdrawals appropriately to pain in all 4 extremities and are equal. He has no noted facial droop. The [place] Coma Scale is 9 at E2, V2, M5. HEENT: Unremarkable. LUNGS: Clear to auscultation with moderate inspiratory and expiratory effort. HEART: Regular rate and rhythm. ABDOMEN: Soft, nondistended with active bowel sounds. EXTREMITIES: Capillary refill is less than 3 seconds. The patient withdraws appropriately and equally to pain in all 4 extremities. LABORATORY FINDINGS: At bedside, his glucose was 93. Arterial blood gas this morning on room air showed a pH of 7.42, pCO2 of 39, pO2 of 86, base excess was 0.7. Hemoglobin on was 10.5. IMAGING STUDIES: There are no radiographs to review this morning. ASSESSMENT AND PLAN: 1. Status post ground level fall. 2. Status post open reduction and internal fixation of right femoral neck fracture. 3. Chronic anemia due to disease process, stable. 4. Chronic kidney disease, stable, improved. 5. History of Alzheimer dementia, Parkinson's, and renal cancer. 6. History of benign prostatic hypertrophy. 7. History of type 2 diabetes. 8. Heavy sedation secondary to medications. PLAN: Plan will be to discontinue the 100 mg tramadol p.r.n. and the Flexeril medications. We will allow the patient to wake from his medications and begin work with Physical Therapy again today. Case Management is working with the family regarding placement. The evaluation and examination were done with Dr. Breen during rounds this morning. Job ID: [id number]
[2019-07-02] MEDS: Carbidopa/Levodopa CR 50-200 mg Tablet PO SCH ×3 (16:42→20:43)
[2019-07-02] MEDS: Famotidine 20 MG TAB PO SCH ×2 (16:43→20:43)
[2019-07-02] MEDS: Ferrous Sulfate 325 MG TAB PO SCH (16:43)
[2019-07-02] MEDS: Finasteride 5 MG TAB PO SCH (16:43)
[2019-07-02] MEDS: Furosemide 20 MG TAB PO SCH (16:43)
[2019-07-02] MEDS: Polyethylene Glycol 3350 17 GM Packet PO SCH (16:44)
[2019-07-02] MEDS: Vit A,C & E/Lutein/Minerals Tablet PO SCH (16:44)
[2019-07-02] MEDS: Senokot S 8.6-50 MG TAB PO SCH ×2 (16:44→20:43)
[2019-07-02] MEDS: Mirtazapine 15 MG Soltab PO SCH (20:44)
--- NOTE | 2019-07-02 22:07 | PRG ---
DATE OF SERVICE: 07/02/2019 SUBJECTIVE: Mr. Nicole is a 73-year-old male with history of severe dementia Alzheimer, Parkinson's, renal cancer, benign prostatic hypertrophy, diabetes type 2, chronic kidney disease. He is status post ground-level fall and he sustained right femoral neck fracture. He underwent ORIF of right femoral neck fracture, postop day 2 today. He is currently in surgical floor. His mental status is in his baseline. He participates limitedly on the conversation, sometimes confused. OBJECTIVE: GENERAL: Currently, the patient is lying down in bed with no acute respiratory distress. SKIN: [place] and warm. VITAL SIGNS: Temperature 98, heart rate 82, respiratory rate 18, O2 saturation 94% on room air, and blood pressure 108/65. LUNGS: Clear bilaterally. HEART: Regular rate and rhythm. ABDOMEN: Soft, nondistended. EXTREMITIES: The patient able to move four extremities. Unable to test the sensation due to the patient's mental status diminished. ASSESSMENT: 1. Status post ground-level fall. 2. Open reduction and internal fixation of right femoral neck fracture, postop day 2. 3. History of severe dementia Alzheimer, Parkinson's, renal cancer. 4. Benign prostatic hypertrophy. 5. Diabetes type 2. 6. Chronic kidney disease. PLAN: We will continue supportive care. Continue pain control. Continue DVT prophylaxis. Plan will be for placement in senior living home facility. Job ID: [id number]
[2019-07-03] MEDS: Acetaminophen 325 MG TAB PO SCH ×2 (05:24→12:19)
[2019-07-03] MEDS: Senokot S 8.6-50 MG TAB PO SCH (08:40)
[2019-07-03] MEDS: Finasteride 5 MG TAB PO SCH (08:41)
[2019-07-03] MEDS: Carbidopa/Levodopa CR 50-200 mg Tablet PO SCH ×2 (08:41→14:57)
[2019-07-03] MEDS: Ferrous Sulfate 325 MG TAB PO SCH (08:41)
[2019-07-03] MEDS: Furosemide 20 MG TAB PO SCH (08:41)
[2019-07-03] MEDS: Vit A,C & E/Lutein/Minerals Tablet PO SCH (08:41)
[2019-07-03] MEDS: Famotidine 20 MG TAB PO SCH (08:41)
[2019-07-03] MEDS: Polyethylene Glycol 3350 17 GM Packet PO SCH (08:42)
[2019-07-03] MEDS ORDERED: Aspirin 81 mg Enteric Coated Tablet PO SCH (09:00)
[2019-07-03] MEDS ORDERED: Non-Formulary Item 1 EACH (Acetaminophen [Tylenol] 650 MG) PO PRN (11:11)
--- NOTE | 2019-07-03 11:12 | PRG ---
DATE OF SERVICE: 07/03/2019 SUBJECTIVE: Elvin is a 73-year-old male who is postop day 3 from a right hip hemiarthroplasty. He is at his baseline of dementia. OBJECTIVE: Incision is clean. No erythema. No strike through. No malrotation or shortening. No leg length discrepancy. IMPRESSION: A 73-year-old male with past medical history significant for dementia, postoperative day 3, right hip hemiarthroplasty, at baseline. PLAN: Incision check is good. Continue current care. Discharge planning per Trauma Team. Job ID: [id number]
[2019-07-03] MEDS ORDERED: Acetaminophen 325 MG TAB PO PRN (11:13)
--- NOTE | 2019-07-03 13:25 | PRG ---
DATE OF SERVICE: 07/03/2019 SUBJECTIVE: A 73-year-old male status post fall, right femoral neck fracture, postop day #4, history of atrial fibrillation, now rate controlled, was confused and somewhat altered yesterday, likely over-sedated, held gabapentin and Flexeril. Mental status is more appropriate. He is eating his breakfast. He is able to tell me his name and then he just had breakfast. No acute distress. Wounds are clean. Vital signs stable. Awaiting placement. I have discussed with Case Management. They are aware they believe that he can likely go today. However, I am waiting for approval, though the paperwork and med rec have been completed. The patient does have a Ling, and I have requested the nurse to remove the Ling now. PHYSICAL EXAMINATION: VITAL SIGNS: Temperature is 97.8, blood pressure is 122/69, heart rate is 77, breathing 14 times per minute, and saturating 97% on room air. GENERAL: He is a 73-year-old confused male, lying semi-Levine's in bed. No acute distress. HEENT: Normocephalic and atraumatic. Trachea is midline. RESPIRATORY: Equal rise and fall. Bilateral breath sounds. Clear to auscultation in upper and lower bilaterally. CARDIOVASCULAR: Irregularly irregular rhythm. Murmur is noted. Really no edema. Strong pulses in all extremities. ABDOMEN: Soft, nontender. Pelvis is stable. MUSCULOSKELETAL: Moves extremities. Does have the wound noted to the right hip. SKIN: Warm and dry. Dressing is dry. PSYCH: Pleasant. NEURO: Confused, but oriented to person. LABORATORY DATA: Today, glucose of 101. ASSESSMENT: 1. Fall with right femoral neck fracture. 2. Chronic anemia. 3. Chronic kidney disease, stable. 4. Dementia. 5. History of type 2 diabetes. 6. BPH. 7. Heavy sedation, resolved. PLAN: 1. We will continue the current care. 2. PT is working with the patient. 3. Plan is to go back to the nursing facility. 4. Hold gabapentin and Flexeril. 5. We will start DVT prophylaxis with low-dose aspirin. Again, I have discussed case with Case Management. We are hoping to discharge patient today. I filled out the paperwork. Discussed with RN and done the med rec. Discussed the case with Orthopedic Surgery. Please remove the Ling, which I have discussed with the bedside RN. There is no family at the bedside to update. Job ID: [id number]
[2019-07-03 15:04] VITALS: BP 131/77; TEMP 97.5
--- NOTE | 2019-07-03 15:47 | EKG ---
Test Reason : FALL Blood Pressure : / mmHG Vent. Rate : 076 BPM Atrial Rate : 076 BPM P-R Int : 130 ms QRS Dur : 086 ms QT Int : 360 ms P-R-T Axes : 061 069 072 degrees QTc Int : 405 ms Normal sinus rhythm Normal ECG Confirmed by FRANKO LAWLER ([id number]), video news editor KATHERINE UREÑA ([id number]) on 07/03/2019 3:47:26 PM Referred By: NURIS Confirmed By:FRANKO LAWLER
[2019-07-03] MEDS ORDERED: Polyethylene Glycol 3350 17 GM Packet PO SCH (21:00)
[2019-07-03] MEDS ORDERED: Docusate 100 MG CAP PO SCH (21:00)
--- NOTE | 2019-07-04 01:47 | DIS ---
DATE OF ADMISSION: 06/29/2019 DATE OF DISCHARGE: 07/03/2019 ADMISSION DIAGNOSES: 1. Ground level fall. 2. Right femoral neck fracture. 3. Chronic anemia. 4. Chronic kidney disease. 5. History of dementia, Parkinson's, BPH, diabetes. DISCHARGE DIAGNOSES: 1. Fall with right femoral neck fracture, status post open reduction and internal fixation. 2. Chronic anemia. 3. Chronic kidney disease. 4. Altered mental status/encephalopathy-resolved. 5. Chronic kidney disease. 6. History of Alzheimer's, Parkinson's, renal cancer, BPH, and type 2 diabetes. HOSPITAL COURSE: Mr. Nicole was admitted through the emergency department from [facility]. He is a 73-year-old male, unwitnessed fall, right hip fracture. The patient had trevino scan including CT head, C-spine, chest, abdomen and pelvis demonstrating a right femoral neck fracture. The patient went to the OR on hospital day #1 for ORIF of the same. Patient was seen by PT, OT, Case Management and family elected to go back to the care home facility. Patient on hospital day #3 had some altered mental status, it was believed to be secondary to medications. Gabapentin and Flexeril were held, and mental status improved. Patient tolerated a diet. His Ling was removed on the date of discharge and patient has been accepted back at [facility]. His pain seems to be controlled. There was no family on my visits. They have elected to go back to the [facility] per Case Management. Patient is hemodynamically stable on his home medications. For physical exam, please see progress note dated for today. Discharge plan is in the [facility]. Follow up with his PCP and follow up with Dr. Schulte in two weeks. Greater than 30 minutes was taken in discharge planning of this patient. Job ID: [id number]
--- NOTE | 2019-07-05 22:56 | EKG ---
Test Reason : STAT Blood Pressure : / mmHG Vent. Rate : 180 BPM Atrial Rate : 192 BPM P-R Int : 000 ms QRS Dur : 068 ms QT Int : 236 ms P-R-T Axes : 000 074 265 degrees QTc Int : 408 ms Atrial fibrillation with rapid ventricular response with premature ventricular or aberrantly conducte d complexes Marked ST abnormality, possible inferior subendocardial injury Marked ST abnormality, possible anterior subendocardial injury Abnormal ECG When compared with ECG of 29-JUN-2019 16:46, (Unconfirmed) Significant changes have occurred Confirmed by REESE TEMPLE M.D. ([id number]) on 07/05/2019 10:55:31 PM Referred By: KARIME Confirmed By:REESE TEMPLE M.D.
--- NOTE | 2019-07-05 22:57 | EKG ---
Test Reason : STAT Blood Pressure : / mmHG Vent. Rate : 096 BPM Atrial Rate : 096 BPM P-R Int : 112 ms QRS Dur : 086 ms QT Int : 336 ms P-R-T Axes : 080 073 050 degrees QTc Int : 424 ms Sinus rhythm with occasional Premature ventricular complexes Otherwise normal ECG When compared with ECG of 30-JUN-2019 20:57, (Unconfirmed) Sinus rhythm has replaced Atrial fibrillation Vent. rate has decreased BY 84 BPM Confirmed by REESE TEMPLE M.D. ([id number]) on 07/05/2019 10:56:48 PM Referred By: KARIME Confirmed By:REESE TEMPLE M.D.
--- NOTE | 2019-07-05 23:07 | EKG ---
Test Reason : AFTER CODE GREEN Blood Pressure : / mmHG Vent. Rate : 079 BPM Atrial Rate : 079 BPM P-R Int : 142 ms QRS Dur : 084 ms QT Int : 350 ms P-R-T Axes : 079 072 042 degrees QTc Int : 401 ms Normal sinus rhythm Normal ECG When compared with ECG of 30-JUN-2019 23:00, (Unconfirmed) Premature ventricular complexes are no longer Present Confirmed by REESE TEMPLE M.D. ([id number]) on 07/05/2019 11:06:41 PM Referred By: DESTINEE Confirmed By:REESE TEMPLE M.D.
--- NOTE | 2019-07-06 08:21 | PQF ---
ROSARIO ROWAN KIMIYE MD [id number] CLINICAL DOCUMENTATION CLARIFICATION FORM: POST DISCHARGE Addendum to original discharge summary date: ____ Late entry note date: __ DATE:07/06/2019 ATTN:BETITO FAUSTIN MD Please exercise your independent, professional judgment in responding to the clarification form. Clinical indicators are provided on the bottom of this form for your review Please check appropriate box(s): [ ] Encephalopathy: Type: [ ] Acute [ ] Subacute [ ] Chronic Etiology: [ ] Hypertensive [ ] Metabolic [ ] Toxic [ ] Hepatic with Coma [ ] Hepatic w/o Coma [ ] Hypoxic [ ] Septic [ ] Drug induced: [ ] Unspecified [ ] in the setting of underlying dementia [ ] Other (please specify) [ ] Transient Alteration of Awareness [ ] Other diagnosis [ ] Unable to determine For continuity of documentation, please document condition throughout progress notes and discharge summary. Thank You. CLINICAL INDICATORS - SIGNS / SYMPTOMS / LABS Altered mental status/kevcvqrnbxvkb-ngppgnqm-Slefoadnfm in DS on 07/03 by Victor Hugo Soriano PA-C Patient had trevino scan including CT head- Documented in DS on 07/03 by Victor Hugo Soriano PA-C Patient on hospital day#3 had some altered mental status,It was belived to be secondary to medication Gabapentin and flexeril were held, and mental status improved-Documented in DS on 07/03 by Victor Hugo Soriano PA-C RISK FACTORS Right femoral neck fracture status post open reduction and internal fixation- Documented in DS on 07/03 by Victor Hugo Soriano PA-C History of alzheimer's,Parkinson's-Documented in DS on 07/03 by Victor Hugo Soriano Type 2 diabetes-Documented in DS on 07/03 by Victor Hugo Soriano PA-C TREATMENTS: Sodium chloride IV-Documented in Medication snapshot (This form is maintained as a part of the permanent medical record) 2014 [employer]. All Rights Reserved [email or web address] [not provided] MTDD
== END 2019-07-03 16:35 | DRG 470 ==
LOC: ERS 15:16 → SURG A 17:05 → IMCU/EMU 06-30 21:42 → CCU 06-30 22:16 → SJJU 07-01 18:44
PROVIDERS: ADMIT Surgery; ATTEND Surgery
PROC: 0SRR0JZ Replacement of Right Hip Joint, Femoral Surface with Synthetic Substitute, Open Approach (ICD-10-PCS; principal; 2019-06-29)
DX: S72.091A Other fracture of head and neck of right femur, initial encounter for closed fracture (principal); G93.40 Encephalopathy, unspecified; G30.9 Alzheimer's disease, unspecified; F02.80 Dementia in other diseases classified elsewhere, unspecified severity, without behavioral disturbance, psychotic disturbance, mood disturbance, and anxiety; G20 Parkinson's disease; F32.9 Major depressive disorder, single episode, unspecified; N40.0 Benign prostatic hyperplasia without lower urinary tract symptoms; G89.11 Acute pain due to trauma; E11.22 Type 2 diabetes mellitus with diabetic chronic kidney disease; N18.9 Chronic kidney disease, unspecified; R41.82 Altered mental status, unspecified; Z80.51 Family history of malignant neoplasm of kidney
CPT/HCPCS: 36415; 36416; 70450; 71045; 71260; 72125; 72170; 74177; 80048; 80053; 82805; 83690; 83735; 84100; 85025; 88305; 88311; 93005; 93010; G0390; J0131; J0282; J0670; J0690; J1100; J1885; J2001; J2405; J2704; J3010; J3475; J7070; Q9967